=== PATIENT | male | born 1965 | race African-American/Black ===

== ENCOUNTER 2022-08-22 08:38 | Emergency (ER) | payer OTHER ==
[2022-08-22 08:52] VITALS: TEMP 97.9
--- NOTE | 2022-08-22 09:19 | ED ---
Recheck HPI - General Chief Complaint: Recheck/Abnormal Lab/Rx Stated Complaint: leg pain Time Seen by Provider: 08/22/22 08:54 Source: patient, RN notes reviewed Mode of arrival: ambulatory Limitations: no limitations - History of Present Illness Initial Comments: 57-year-old male history of chronic bypass in the past history of hypertension who states she is on Coumadin which she has been taking but not the usual dosing regimen also states he's not been out of his blood pressure medications for a couple months who presents with complaints of some left leg pain. He states he has hardware left orbit from previous injury. The concern however is his blood pressure. No chest pain or shortness of breath he states he just moved to the area. He does not have a new doctor yet. He was on amlodipine he cannot remember the exact dose. The patient states he was having some sharp pain in the left side going on for about 2 weeks worse at work last night. No other current complaints or modifying factors - Related Data Home Medications Medication Instructions Recorded Confirmed Aspirin EC [Ecotrin Low Dose] 81 mg PO DAILY 08/22/22 08/22/22 Clopidogrel [Plavix] 75 mg PO DAILY 08/22/22 08/22/22 Previous Rx's Medication Instructions Recorded amLODIPine 10 mg PO DAILY #30 tab 08/22/22 Allergies Allergy/AdvReac Type Severity Reaction Status Date / Time No Known Allergies Allergy Verified 08/22/22 10:31 Review of Systems ROS Statement: Those systems with pertinent positive or pertinent negative responses have been documented in the HPI. ROS Other: All systems not noted in ROS Statement are negative. Past Medical History Past Medical History: Coronary Artery Disease (CAD), Hypertension, Myocardial Infarction ([place]) History of Any Multi-Drug Resistant Organisms: None Reported Past Surgical History: Coronary Bypass/CABG, Heart Catheterization With Stent Additional Past Surgical History / Comment(s): Quadruple Bypass 2019 Past Psychological History: No Psychological Hx Reported Smoking Status: Former smoker Past Alcohol Use History: None Reported Past Drug Use History: None Reported General Exam - General Exam Comments Initial Comments: This a well-developed well-nourished awake alert oriented 4 male Limitations: no limitations General appearance: alert, in no apparent distress Head exam: Present: atraumatic, normocephalic, normal inspection Eye exam: Present: normal appearance, PERRL, EOMI. Absent: scleral icterus, conjunctival injection, periorbital swelling ENT exam: Present: normal exam, mucous membranes moist Neck exam: Present: normal inspection, full ROM, other. Absent: tenderness, meningismus, lymphadenopathy Respiratory exam: Present: normal lung sounds bilaterally, prolonged expiratory (Well-healed mid sternotomy scar), other (No stridor JVD or bruits). Absent: respiratory distress, wheezes, rales, rhonchi, stridor Cardiovascular Exam: Present: regular rate, normal rhythm, normal heart sounds. Absent: systolic murmur, diastolic murmur, rubs, gallop, clicks GI/Abdominal exam: Present: soft, normal bowel sounds. Absent: distended, tenderness, guarding, rebound, rigid Extremities exam: Present: normal inspection, full ROM, normal capillary refill. Absent: tenderness, pedal edema, joint swelling, calf tenderness Back exam: Present: normal inspection Neurological exam: Present: alert, oriented X3, CN II-XII intact Psychiatric exam: Present: normal affect, normal mood Skin exam: Present: warm, dry, intact, normal color. Absent: rash Course Vital Signs 08/22/22 08/22/22 08:47 09:23 Temperature 97.9 F Pulse Rate 86 68 Respiratory 17 18 Rate Blood Pressure 207/95 169/95 O2 Sat by Pulse 99 98 Oximetry Medical Decision Making - Medical Decision Making I did discuss findings with the patient he is feeling well at this time he'll get a dose of amlodipine and be given a prescription for the same he believes he is on 10 mg. He'll be discharged he is to continue with follow-up with attending physician return when necessary - Lab Data Result diagrams: 08/22/22 09:16 08/22/22 09:16 Lab Results 08/22/22 08/22/22 08/22/22 Range/Units 09:16 09:16 09:16 WBC 4.5 (3.8-10.6) k/uL RBC 5.29 (4.30-5.90) m/uL Hgb 14.9 (13.0-17.5) gm/dL Hct 44.8 (39.0-53.0) % MCV 84.6 (80.0-100.0) fL MCH 28.2 (25.0-35.0) pg MCHC 33.4 (31.0-37.0) g/dL RDW 13.8 (11.5-15.5) % Plt Count 246 (150-450) k/uL MPV 9.4 Neutrophils % 63 % Lymphocytes % 23 % Monocytes % 6 % Eosinophils % 5 % Basophils % 1 % Neutrophils # 2.8 (1.3-7.7) k/uL Lymphocytes # 1.1 (1.0-4.8) k/uL Monocytes # 0.3 (0-1.0) k/uL Eosinophils # 0.2 (0-0.7) k/uL Basophils # 0.0 (0-0.2) k/uL PT 10.4 (9.0-12.0) sec INR 0.9 (<1.2) APTT 24.1 (22.0-30.0) sec Sodium 141 (137-145) mmol/L Potassium 4.9 (3.5-5.1) mmol/L Chloride 108 H (98-107) mmol/L Carbon Dioxide 23 (22-30) mmol/L Anion Gap 10 mmol/L BUN 22 H (9-20) mg/dL Creatinine 1.22 (0.66-1.25) mg/dL Est GFR (CKD-EPI)AfAm 77 (>60 ml/min/1.73 sqM) Est GFR (CKD-EPI)NonAf 66 (>60 ml/min/1.73 sqM) Glucose 102 H (74-99) mg/dL Calcium 8.9 (8.4-10.2) mg/dL Magnesium 2.0 (1.6-2.3) mg/dL Total Bilirubin 0.6 (0.2-1.3) mg/dL AST 40 (17-59) U/L ALT 21 (4-49) U/L Alkaline Phosphatase 63 (38-126) U/L Creatine Kinase 665 H (55-170) U/L Troponin I (0.000-0.034) ng/mL C-Reactive Protein 0.8 (<1.0) mg/dL Total Protein 7.5 (6.3-8.2) g/dL Albumin 4.7 (3.5-5.0) g/dL Lipase 130 (23-300) U/L 08/22/22 Range/Units 09:16 WBC (3.8-10.6) k/uL RBC (4.30-5.90) m/uL Hgb (13.0-17.5) gm/dL Hct (39.0-53.0) % MCV (80.0-100.0) fL MCH (25.0-35.0) pg MCHC (31.0-37.0) g/dL RDW (11.5-15.5) % Plt Count (150-450) k/uL MPV Neutrophils % % Lymphocytes % % Monocytes % % Eosinophils % % Basophils % % Neutrophils # (1.3-7.7) k/uL Lymphocytes # (1.0-4.8) k/uL Monocytes # (0-1.0) k/uL Eosinophils # (0-0.7) k/uL Basophils # (0-0.2) k/uL PT (9.0-12.0) sec INR (<1.2) APTT (22.0-30.0) sec Sodium (137-145) mmol/L Potassium (3.5-5.1) mmol/L Chloride (98-107) mmol/L Carbon Dioxide (22-30) mmol/L Anion Gap mmol/L BUN (9-20) mg/dL Creatinine (0.66-1.25) mg/dL Est GFR (CKD-EPI)AfAm (>60 ml/min/1.73 sqM) Est GFR (CKD-EPI)NonAf (>60 ml/min/1.73 sqM) Glucose (74-99) mg/dL Calcium (8.4-10.2) mg/dL Magnesium (1.6-2.3) mg/dL Total Bilirubin (0.2-1.3) mg/dL AST (17-59) U/L ALT (4-49) U/L Alkaline Phosphatase (38-126) U/L Creatine Kinase (55-170) U/L Troponin I <0.012 (0.000-0.034) ng/mL C-Reactive Protein (<1.0) mg/dL Total Protein (6.3-8.2) g/dL Albumin (3.5-5.0) g/dL Lipase (23-300) U/L - EKG Data -: EKG Interpreted by Or EKG shows normal: sinus rhythm EKG Comments: Sinus rhythm a 72 AL interval 161 QRS duration 90 QT since QTC 407/or 32 possible left atrial enlargement borderline right axis deviation nonspecific T- wave configuration - Radiology Data Radiology results: report reviewed ((Reviewed as well as report no acute processes), image reviewed Disposition Clinical Impression: Hypertension, Dehydration, Rhabdomyolysis Disposition: HOME SELF-CARE Condition: Good Instructions (If sedation given, give patient instructions): Chronic Hypertension (ED), Dehydration (ED), Rhabdomyolysis (ED) Additional Instructions: Increase oral fluids Prescriptions: amLODIPine 10 mg PO DAILY #30 tab Is patient prescribed a controlled substance at d/c from ED?: No Referrals: None,Stated [Primary Care Provider] - 1-2 days Decision Date: 08/22/22 Decision Time: 11:46
[2022-08-22 09:23] VITALS: BP 169/95; PULSE 68; RESP 18
[2022-08-22 09:24] LABS: Basophils % (A) 1 %; Eosinophils # (A) 0.2 k/uL (0-0.7); Eosinophils % (A) 5 %; HCT 44.8 % (39.0-53.0); HGB 14.9 gm/dL (13.0-17.5); Lymphocytes # (A) 1.1 k/uL (1.0-4.8); Lymphocytes % (A) 23 %; MCH 28.2 pg (25.0-35.0); MCHC 33.4 g/dL (31.0-37.0); MCV 84.6 fL (80.0-100.0); Mean Platelet Volume 9.4; Monocytes # (A) 0.3 k/uL (0-1.0); Monocytes % (A) 6 %; Neutrophils # (A) 2.8 k/uL (1.3-7.7); Neutrophils % (A) 63 %; Platelet Count 246 k/uL (150-450); RBC 5.29 m/uL (4.30-5.90); RDW 13.8 % (11.5-15.5); WBC 4.5 k/uL (3.8-10.6)
[2022-08-22 09:37] LABS: INR 0.9 (<1.2); Partial Thromboplastin Time 24.1 sec (22.0-30.0); Prothrombin Time 10.4 sec (9.0-12.0)
--- NOTE | 2022-08-22 09:41 | XR ---
EXAMINATION TYPE: XR chest 2V DATE OF EXAM: 08/22/2022 9:36 AM COMPARISON: None TECHNIQUE: XR chest 2V Frontal and lateral views of the chest. CLINICAL INDICATION:Male, 57 years old with history of Hypertension; FINDINGS: Overlying EKG leads limits evaluation. Lungs/Pleura: There is no evidence of pleural effusion, focal consolidation, or pneumothorax. Pulmonary vascularity: Unremarkable. Heart/mediastinum: Cardiomediastinal silhouette is unremarkable. Musculoskeletal: No acute osseous pathology. Midline sternotomy wires are noted and stable. IMPRESSION: No acute cardiopulmonary disease/process.
[2022-08-22 09:43] LABS: Albumin 4.7 g/dL (3.5-5.0); Calcium 8.9 mg/dL (8.4-10.2); Total Bilirubin 0.6 mg/dL (0.2-1.3); Total Protein 7.5 g/dL (6.3-8.2)
[2022-08-22 10:04] LABS: Potassium 4.9 mmol/L (3.5-5.1)
[2022-08-22] MEDS ORDERED: SODIUM CHLORIDE 0.9% 1,000 ML IV STA (10:10)
[2022-08-22 10:15] LABS: C Reactive Protein 0.8 mg/dL (<1.0)
[2022-08-22] MEDS ORDERED: amLODIPine 10 MG TAB PO STA (11:38)
== END 2022-08-22 12:05 | disposition home or self-care (01) ==
LOC: EC 08:38
DX: I10 Essential (primary) hypertension (principal); E86.0 Dehydration; M62.82 Rhabdomyolysis; I25.10 Atherosclerotic heart disease of native coronary artery without angina pectoris; I25.2 Old myocardial infarction; Z87.891 Personal history of nicotine dependence; Z79.82 Long term (current) use of aspirin; Z79.02 Long term (current) use of antithrombotics/antiplatelets; Z79.83 Long term (current) use of bisphosphonates
CPT/HCPCS: 36415; 71046; 80053; 82550; 83690; 83735; 84484; 85025; 85610; 85730; 86140; 93005; 96360; 99284

== ENCOUNTER 2022-11-16 11:58 | Observation (INO) | payer BC, OTHER ==
--- NOTE | 2022-11-16 12:44 | ED ---
General Adult HPI - General Chief complaint: Dizziness Stated complaint: dizziness Time Seen by Provider: 11/16/22 12:12 Source: patient Mode of arrival: ambulatory Limitations: no limitations - History of Present Illness Initial comments: Dictation was produced using [employer] dictation software. please excuse any grammatical, word or spelling errors. Chief Complaint: 57-year-old male presents emergency department for dizziness and diaphoresis History of Present Illness: 57-year-old male he has past medical history of coronary artery bypass grafting performed in 2019 done in [place]. Patient is supposed be on multiple medications but is noncompliant. Multiple town recently and has not established himself with regular doctor or cardiology here. He was at work where he works at [employer] area. He works in [employer] Couple hours prior to arrival he had episode of dizziness and diaphoresis. Patient also complains of some mild nasal congestion. Denies any fever constitutional symptoms. Patient has a baseline cough. Denies any shoulder pain or epigastric pain. Since being in emergency department he feels improved. Does complain of some mild exertional shortness of breath over the last 2-3 days. The ROS documented in this emergency department record has been reviewed and confirmed by me. Those systems with pertinent positive or negative responses have been documented in the HPI. All other systems are other negative and/or noncontributory. PHYSICAL EXAM: General Impression: Alert and oriented x3, not in acute distress HEENT: Normocephalic atraumatic, extra-ocular movements intact, pupils equal and reactive to light bilaterally, mucous membranes moist. Cardiovascular: Heart regular rate and rhythm Chest: Able to complete full sentences, no retractions, no tachypnea Abdomen: abdomen soft, non-tender, non-distended, no organomegaly Musculoskeletal: Pulses present and equal in all extremities, no peripheral edema Motor: no focal deficits noted Neurological: CN II-XII grossly intact, no focal motor or sensory deficits noted Skin: Intact with no visualized rashes Psych: Normal affect and mood ED course: 57-year-old well-appearing male with extensive cardiac history and medication noncompliance presents to the emergency department for episode of dizziness and diaphoresis. Signs upon arrival are within acceptable limits. EKG shows no signs of ischemia or infarction. Patient reports he is supposed to be on anticoagulation medications but he does not know for what reason and what medication Nursing notes and chart review was performed EKG interpreted by me: Ventricular rate 85, sinus rhythm,. 170, QRS 80, QTc 4 week. No AR prolongation, no QTC prolongation, no ST or T-wave changes noted. Overall, this EKG is unremarkable Laboratory evaluation obtained. CBC, coag panel is unremarkable. Metabolic panel shows elevated renal markers. Renal function was compared to labs from August last year showing significant elevation. This allows unremarkable. For panel are PCR is negative. Chest x-ray is nonacute. Clinical presentation concerning for a acute kidney injury Was pt. sent in by a medical professional or institution (, [facility], ART TRACER, urgent care, hospital, or halfway...) When possible be specific @ -Sent in from work Did you speak to anyone other than the patient for history (EMS, parent, family, police, friend...)? What history was obtained from this source @ -No Did you review nursing and triage notes (agree or disagree)? Why? @ -I reviewed and agree with nursing and triage notes Were old charts reviewed (outside hosp., previous admission, EMS record, old EKG, old radiological studies, urgent care reports/EKG's, halfway records)? Report findings @ -No old charts were reviewed Differential Diagnosis (chest pain, altered mental status, abdominal pain women, abdominal pain men, vaginal bleeding, weakness, fever, dyspnea, syncope, headache, dizziness, GI bleed, back pain, seizure, CVA, palpatations, mental health)? @ -Differential Weakness: Hypoglycemia, shock, sepsis, hyponatremia, anemia, infection, UT, ETOH, adverse medicine reaction, overdose, stroke, this is not meant to be an all-inclusive list. EKG interpreted by me (3pts min.). @ -As above X-rays interpreted by me (1pt min.). @ -As above CT interpreted by me (1pt min.). @ -None done U/S interpreted by me (1pt. min.). @ -None done What testing was considered but not performed or refused? (CT, X-rays, U/S, labs)? Why? @ -None What meds were considered but not given or refused? Why? @ -None Did you discuss the management of the patient with other professionals (professionals i.e. , [facility], ART TRACER, lab, RT, psych nurse, family welfare social work professor, lead business analyst, teacher, juvenile officer, case assistant)? Give summary @ -No Was smoking cessation discussed for >3mins.? @ -No Was critical care preformed (if so, how long)? @ -No Were there social determinants of health that impacted care today? How? (Homelessness, low income, unemployed, alcoholism, drug addiction, transportation, low edu. Level, literacy, decrease access to med. care, custodial, rehab)? @ -medication noncompliance in patient with significant cardiac history Was there de-escalation of care discussed even if they declined (Discuss DNR or withdrawal of care, Hospice)? DNR status @ -No What co-morbidities impacted this encounter? (DM, HTN, Smoking, COPD, CAD, Cancer, CVA, ARF, Chemo, Hep., AIDS, mental health diagnosis, sleep apnea, morbid obesity)? @ -None Was patient admitted / discharged? Hospital course, mention meds given and route, prescriptions, significant lab abnormalities, going to OR and other pertinent info. @ -See above Undiagnosed new problem with uncertain prognosis? @ -No Drug Therapy requiring intensive monitoring for toxicity (Heparin, Nitro, Insulin, Cardizem)? @ -No Were any procedures done? @ -No Diagnosis/symptom? @ -Acute kidney injury Acute, or Chronic, or Acute on Chronic? @ -default Uncomplicated (without systemic symptoms) or Complicated (systemic symptoms)? @ -Uncomplicated Side effects of treatment? @ -No Exacerbation, Progression, or Severe Exacerbation? @ -No Poses a threat to life or bodily function? How? (Chest pain, USA, UT, pneumonia, PE, COPD, DKA, ARF, appy, cholecystitis, CVA, Diverticulitis, Homicidal, Suicidal, threat to staff... and all critical care pts) @ -No - Related Data Home Medications Medication Instructions Recorded Confirmed Aspirin EC [Ecotrin Low Dose] 81 mg PO DAILY 08/22/22 11/16/22 Previous Rx's Medication Instructions Recorded amLODIPine 10 mg PO DAILY #30 tab 08/22/22 Allergies Allergy/AdvReac Type Severity Reaction Status Date / Time No Known Allergies Allergy Verified 11/16/22 13:14 Review of Systems ROS Statement: Those systems with pertinent positive or pertinent negative responses have been documented in the HPI. ROS Other: All systems not noted in ROS Statement are negative. Past Medical History Past Medical History: Coronary Artery Disease (CAD), Hypertension, Myocardial Infarction ([place]) History of Any Multi-Drug Resistant Organisms: None Reported Past Surgical History: Coronary Bypass/CABG, Heart Catheterization With Stent Additional Past Surgical History / Comment(s): Quadruple Bypass 2019 Past Psychological History: No Psychological Hx Reported Smoking Status: Former smoker Past Alcohol Use History: None Reported Past Drug Use History: None Reported General Exam Limitations: no limitations Course Vital Signs 11/16/22 11:59 Temperature 97.7 F Pulse Rate 91 Respiratory 20 Rate Blood Pressure 174/103 O2 Sat by Pulse 97 Oximetry Medical Decision Making - Lab Data Result diagrams: 11/16/22 12:34 11/16/22 12:34 Lab Results 11/16/22 11/16/22 11/16/22 Range/Units 12:34 12:34 12:34 WBC 4.7 (3.8-10.6) k/uL RBC 5.54 (4.30-5.90) m/uL Hgb 15.5 (13.0-17.5) gm/dL Hct 47.3 (39.0-53.0) % MCV 85.4 (80.0-100.0) fL MCH 28.0 (25.0-35.0) pg MCHC 32.8 (31.0-37.0) g/dL RDW 14.8 (11.5-15.5) % Plt Count 202 (150-450) k/uL MPV 9.2 Neutrophils % 64 % Lymphocytes % 23 % Monocytes % 6 % Eosinophils % 3 % Basophils % 1 % Neutrophils # 3.0 (1.3-7.7) k/uL Lymphocytes # 1.1 (1.0-4.8) k/uL Monocytes # 0.3 (0-1.0) k/uL Eosinophils # 0.1 (0-0.7) k/uL Basophils # 0.0 (0-0.2) k/uL PT 10.4 (9.0-12.0) sec INR 1.0 (<1.2) APTT 23.6 (22.0-30.0) sec Sodium 141 (137-145) mmol/L Potassium 4.3 (3.5-5.1) mmol/L Chloride 108 H (98-107) mmol/L Carbon Dioxide 24 (22-30) mmol/L Anion Gap 9 mmol/L BUN 29 H (9-20) mg/dL Creatinine 2.30 H (0.66-1.25) mg/dL Est GFR (CKD-EPI)AfAm 35 (>60 ml/min/1.73 sqM) Est GFR (CKD-EPI)NonAf 31 (>60 ml/min/1.73 sqM) Glucose 95 (74-99) mg/dL Calcium 9.3 (8.4-10.2) mg/dL Magnesium 1.8 (1.6-2.3) mg/dL Total Bilirubin 0.4 (0.2-1.3) mg/dL AST 33 (17-59) U/L ALT 28 (4-49) U/L Alkaline Phosphatase 57 (38-126) U/L Troponin I (0.000-0.034) ng/mL NT-Pro-B Natriuret Pep pg/mL Total Protein 7.4 (6.3-8.2) g/dL Albumin 4.6 (3.5-5.0) g/dL Influenza Type A (PCR) (Not Detectd) Influenza Type B (PCR) (Not Detectd) RSV (PCR) (Not Detectd) SARS-CoV-2 (PCR) (Not Detectd) 11/16/22 11/16/22 11/16/22 Range/Units 12:34 12:34 12:39 WBC (3.8-10.6) k/uL RBC (4.30-5.90) m/uL Hgb (13.0-17.5) gm/dL Hct (39.0-53.0) % MCV (80.0-100.0) fL MCH (25.0-35.0) pg MCHC (31.0-37.0) g/dL RDW (11.5-15.5) % Plt Count (150-450) k/uL MPV Neutrophils % % Lymphocytes % % Monocytes % % Eosinophils % % Basophils % % Neutrophils # (1.3-7.7) k/uL Lymphocytes # (1.0-4.8) k/uL Monocytes # (0-1.0) k/uL Eosinophils # (0-0.7) k/uL Basophils # (0-0.2) k/uL PT (9.0-12.0) sec INR (<1.2) APTT (22.0-30.0) sec Sodium (137-145) mmol/L Potassium (3.5-5.1) mmol/L Chloride (98-107) mmol/L Carbon Dioxide (22-30) mmol/L Anion Gap mmol/L BUN (9-20) mg/dL Creatinine (0.66-1.25) mg/dL Est GFR (CKD-EPI)AfAm (>60 ml/min/1.73 sqM) Est GFR (CKD-EPI)NonAf (>60 ml/min/1.73 sqM) Glucose (74-99) mg/dL Calcium (8.4-10.2) mg/dL Magnesium (1.6-2.3) mg/dL Total Bilirubin (0.2-1.3) mg/dL AST (17-59) U/L ALT (4-49) U/L Alkaline Phosphatase (38-126) U/L Troponin I <0.012 (0.000-0.034) ng/mL NT-Pro-B Natriuret Pep 83 pg/mL Total Protein (6.3-8.2) g/dL Albumin (3.5-5.0) g/dL Influenza Type A (PCR) Not Detected (Not Detectd) Influenza Type B (PCR) Not Detected (Not Detectd) RSV (PCR) Not Detected (Not Detectd) SARS-CoV-2 (PCR) Not Detected (Not Detectd) Disposition Clinical Impression: MAGDA (acute kidney injury) Disposition: ADMITTED IP TO THIS HOSP Condition: Fair Referrals: None,Stated [Primary Care Provider] - 1-2 days Decision Time: 14:51
--- NOTE | 2022-11-16 12:48 | XR ---
EXAMINATION TYPE: XR chest 2V DATE OF EXAM: 11/16/2022 12:44 PM COMPARISON: Chest radiographs from 08/22/2022 TECHNIQUE: XR chest 2V Frontal and lateral views of the chest. CLINICAL INDICATION:Male, 57 years old with history of dyspnea; FINDINGS: Lungs/Pleura: There is no evidence of pleural effusion, focal consolidation, or pneumothorax. Pulmonary vascularity: Unremarkable. Heart/mediastinum: Cardiomediastinal silhouette is unremarkable. Musculoskeletal: No acute osseous pathology. Midline sternotomy wires are noted and stable. IMPRESSION: No acute cardiopulmonary disease/process.
[2022-11-16 12:50] LABS: Basophils % (A) 1 %; Eosinophils # (A) 0.1 k/uL (0-0.7); Eosinophils % (A) 3 %; HCT 47.3 % (39.0-53.0); HGB 15.5 gm/dL (13.0-17.5); Lymphocytes # (A) 1.1 k/uL (1.0-4.8); Lymphocytes % (A) 23 %; MCHC 32.8 g/dL (31.0-37.0); MCV 85.4 fL (80.0-100.0); Mean Platelet Volume 9.2; Monocytes # (A) 0.3 k/uL (0-1.0); Monocytes % (A) 6 %; Neutrophils % (A) 64 %; Platelet Count 202 k/uL (150-450); RBC 5.54 m/uL (4.30-5.90); RDW 14.8 % (11.5-15.5); WBC 4.7 k/uL (3.8-10.6)
[2022-11-16 12:58] LABS: Partial Thromboplastin Time 23.6 sec (22.0-30.0); Prothrombin Time 10.4 sec (9.0-12.0)
[2022-11-16 13:19] LABS: Albumin 4.6 g/dL (3.5-5.0); Calcium 9.3 mg/dL (8.4-10.2); Magnesium 1.8 mg/dL (1.6-2.3); Potassium 4.3 mmol/L (3.5-5.1); Total Bilirubin 0.4 mg/dL (0.2-1.3); Total Protein 7.4 g/dL (6.3-8.2)
[2022-11-16] MEDS ORDERED: SODIUM CHLORIDE 0.9% 1,000 ML IV STA (14:29)
[2022-11-16] MEDS ORDERED: NALOXONE 0.4 MG/ML 1 ML VIAL IV PRN (14:51)
[2022-11-16] MEDS: SODIUM CHLORIDE 0.9% 1,000 ML IV SCH (15:21)
[2022-11-16] MEDS ORDERED: ACETAMINOPHEN TAB 325 MG TAB PO PRN (19:02)
[2022-11-16] MEDS ORDERED: ONDANSETRON 4 MG/2 ML VIAL IVP PRN (19:02)
[2022-11-16] MEDS: amLODIPine 10 MG TAB PO SCH (20:20)
[2022-11-16] MEDS: HEPARIN SODIUM,PORCINE/PF 5,000 UNIT/0.5 ML SYRINGE SQ SCH (20:20)
[2022-11-16] MEDS: FAMOTIDINE 20 MG/2 ML VIAL IV SCH (20:21)
[2022-11-16 21:58] LABS: Appearance,Urine Clear (Clear); Bilirubin,Urine Negative (Negative); Blood,Urine Negative (Negative); Color,Urine Colorless; Glucose,Urine (UA) Negative (Negative); Ketones,Urine Negative (Negative); Leukocyte Esterase,Urine Negative (Negative); Nitrite,Urine Negative (Negative); PH, Urine 5.5 (5.0-8.0); Protein,Urine Negative (Negative); Specific Gravity,Urine 1.009 (1.001-1.035); Urobilinogen,Urine <2.0 mg/dL (<2.0)
[2022-11-16] MEDS: hydrALAZINE HCL 25 MG TAB PO PRN (22:39)
[2022-11-17] MEDS: SODIUM CHLORIDE 0.9% 1,000 ML IV SCH (05:24)
[2022-11-17] MEDS: amLODIPine 10 MG TAB PO SCH (08:34)
[2022-11-17] MEDS: ASPIRIN 81 MG PO SCH (08:35)
[2022-11-17] MEDS: HEPARIN SODIUM,PORCINE/PF 5,000 UNIT/0.5 ML SYRINGE SQ SCH ×2 (08:35→20:15)
[2022-11-17] MEDS: FAMOTIDINE 20 MG/2 ML VIAL IV SCH (08:36)
[2022-11-17 10:30] VITALS: RESP 16
[2022-11-17 11:19] LABS: Basophils # (A) 0.03 X 10*3/uL (0.00-0.10); Basophils % (A) 0.7 %; Eosinophils # (A) 0.18 X 10*3/uL (0.04-0.35); Eosinophils % (A) 3.9 %; HCT 52.2 % (39.6-50.0); HGB 16.9 g/dL (13.0-17.0); Immature Grans, Automated 0.2 %; Lymphocytes # (A) 1.29 X 10*3/uL (0.90-5.00); MCH 28.1 pg (27.0-32.0); MCHC 32.4 g/dL (32.0-37.0); MCV 86.7 fL (80.0-97.0); Monocytes # (A) 0.36 X 10*3/uL (0.20-1.00); Monocytes % (A) 7.8 %; NRBC Per 100 WBC 0 /100 WBCS (0.0-0.0); Neutrophils # (A) 2.73 X 10*3/uL (1.80-7.70); Neutrophils % (A) 59.4 %; Platelet Count 234 X 10*3/uL (140-440); RBC 6.02 X 10*6/uL (4.40-5.60)
[2022-11-17 11:40] LABS: African American GFR (CKD) 64.6 (60.0-200.0); Anion Gap 10.9 mmol/L (10.00-18.00); BUN/Creat Ratio 14.93 Ratio (12.00-20.00); Blood Urea Nitrogen 20.9 mg/dL (9.0-27.0); Carbon Dioxide 25.1 mmol/L (20.0-27.5); Non-African American GFR(CKD) 55.8 (60.0-200.0)
--- NOTE | 2022-11-17 13:41 | P.NPCON ---
History of Present Illness - Reason for Consult Consult date: 11/17/22 end stage renal disease - Chief Complaint Acute kidney injury - History of Present Illness This is a 57-year-old male seen in consultation because of acute kidney injury. He came in with a creatinine of 2.3 and with IV fluids his creatinine down to 1.4. Past history significant for coronary artery disease, history of coronary artery bypass graft in 2019. He ran out of his amlodipine a few weeks ago. No nausea vomiting diarrhea did not take any nonsteroidals or any antibiotics no [id number] medications at all. The only medication he was taking was aspirin. Denies any history of prostatism incontinence. No history of polyuria. No history of taking any Chief Complaint: 57-year-old male presents emergency department for dizziness and diaphoresis History of Present Illness: 57-year-old male he has past medical history of coronary artery bypass grafting performed in 2019 done in [place]. Patient is supposed be on multiple medications but is noncompliant. Multiple town recently and has not established himself with regular doctor or cardiology here. He was at work where he works at [employer]. He works in [employer]. Couple hours prior to arrival he had episode of dizziness and diaphoresis. Patient also complains of some mild nasal congestion. Denies any fever constitutional symptoms. Patient has a baseline cough. Denies any shoulder p ain or epigastric pain. Since being in emergency department he feels improved. Does complain of some mild exertional shortness of breath over the last 2-3 days. Past Medical History Past Medical History: Coronary Artery Disease (CAD), Hypertension, Myocardial Infarction ([place]) Last Myocardial Infarction Date:: 2018 History of Any Multi-Drug Resistant Organisms: None Reported Past Surgical History: Coronary Bypass/CABG, Heart Catheterization With Stent Additional Past Surgical History / Comment(s): Quadruple Bypass 2019 Date of Last Stent Placement:: 2019 Past Psychological History: No Psychological Hx Reported Smoking Status: Former smoker, Vaper Past Alcohol Use History: None Reported Past Drug Use History: None Reported Medications and Allergies Home Medications Medication Instructions Recorded Confirmed Type Aspirin EC [Ecotrin Low Dose] 81 mg PO DAILY 08/22/22 11/16/22 History amLODIPine 10 mg PO DAILY #30 tab 08/22/22 11/16/22 Rx Allergies Allergy/AdvReac Type Severity Reaction Status Date / Time No Known Allergies Allergy Verified 11/16/22 13:14 Physical Exam Vitals: Vital Signs Temp Pulse Pulse Resp BP BP BP 11/17/22 08:00 68 16 11/17/22 07:55 97.8 F 68 16 147/84 11/17/22 02:01 97.8 F 76 18 146/92 11/17/22 02:00 72 17 11/16/22 22:39 172/102 11/16/22 20:12 97.9 F 72 17 179/111 11/16/22 20:00 63 16 11/16/22 17:20 98.4 F 63 16 164/90 11/16/22 15:19 73 16 139/86 Pulse Ox 11/17/22 08:00 11/17/22 07:55 98 11/17/22 02:01 94 L 11/17/22 02:00 11/16/22 22:39 11/16/22 20:12 97 11/16/22 20:00 11/16/22 17:20 94 L 11/16/22 15:19 97 Intake and Output 11/16/22 11/17/22 11/17/22 22:59 06:59 14:59 Intake Total 1020 1080 118 Output Total 176 725 Balance 844 1080 -607 Intake: Oral 1020 1080 118 Output: Urine 725 Post Void Residual 176 Other: Voiding Method Toilet Toilet Toilet Weight 83.915 kg On examination awake alert oriented comfortable No JVP neck is supple no facial asymmetry lungs are clear to auscultation good air entry bilaterally Heart sounds unremarkable Abdomen soft nontender Extremity exam no edema Neurologically awake alert oriented. Results - Lab Results Most recent lab results Calcium 10.0 mg/dL (8.7-10.3) 11/17/22 07:41 Magnesium 1.8 mg/dL (1.6-2.3) 11/16/22 12:34 11/17/22 07:41 11/17/22 07:41 Assessment and Plan Assessment: Impression 1. Acute kidney injury caused not clear. It was associated with a syncopal episode. Creatinine 2.3 on admission is down to 1.4 improved immediately with IV fluid therefore some prerenal component although I cannot figure out why he had volume depletion. Urinalysis is benign 2. History of coronary artery bypass graft in 2019 3. 2 episodes of near syncope unprovoked. Needs cardiology workup. Recommendation 1. Discontinue IV fluids and watch. Repeat labs tomorrow
--- NOTE | 2022-11-17 15:57 | P.HPIM ---
History of Present Illness H&P Date: 11/17/22 History of present illness; patient is a 57-year-old gentleman with past medical significant for coronary disease status post CABG, noncompliance who recently moved from [place] to [place] presented to the ER because of dizziness and diaphoresis. 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 Patient was working when he started experiencing dizziness, denied any chest pain at that time. Patient was having some mild nasal congestion. Patient has been noticing increasing lethargic and get short of breath on exertion easily. In the ER, patient was worked up initial sodium was 143, potassium 4.3, BUN 29, creatinine 2.3, respiratory panel Negative for influenza AB and COVID-19. Patient was a dmitted to hospitalist service for further evaluation and treatment REVIEW OF SYSTEMS: CONSTITUTIONAL: No fever. HEENT: No recent visual problems or hearing problems. Denied any sore throat. CARDIOVASCULAR: No chest pain, orthopnea, PND, no palpitations, no syncope. PULMONARY: no cough, no hemoptysis. GASTROINTESTINAL: No diarrhea, no nausea, no vomiting, no abdominal pain. NEUROLOGICAL: No headaches, no weakness, no numbness. HEMATOLOGICAL: Denies any bleeding or petechiae. GENITOURINARY: Denies any burning micturition, frequency, or urgency. MUSCULOSKELETAL/RHEUMATOLOGICAL: Denies any joint pain, swelling, or any muscle pain. ENDOCRINE: Denies any polyuria or polydipsia. The rest of the 14-point review of systems is negative. PHYSICAL EXAMINATION: GENERAL: The patient is alert and oriented x3, not in any acute distress. Well developed, well nourished. HEENT: Pupils are round and equally reacting to light. EOMI. No scleral icterus. No conjunctival pallor. Normocephalic, atraumatic. No pharyngeal erythema. No thyromegaly. CARDIOVASCULAR: S1 and S2 present. No murmurs, rubs, or gallops. PULMONARY: Chest is clear to auscultation, no wheezing or crackles. ABDOMEN: Soft, nontender, nondistended, normoactive bowel sounds. No palpable organomegaly. MUSCULOSKELETAL: No joint swelling or deformity. EXTREMITIES: No cyanosis, clubbing, or pedal edema. NEUROLOGICAL: Gross neurological examination did not reveal any focal deficits. SKIN: No rashes. Assessment and plan Acute kidney injury History of coronary artery disease Near syncope Hypertension Plan; Monitor vital signs Monitor CMP Avoid nephrotoxic agents Continue IV fluids Ordered 2-D echo Monitor troponins. Consult cardiology Follow-up in nephrology recommendations DVT prophylaxis: Past Medical History Past Medical History: Coronary Artery Disease (CAD), Hypertension, Myocardial Infarction ([place]) Last Myocardial Infarction Date:: 2018 History of Any Multi-Drug Resistant Organisms: None Reported Past Surgical History: Coronary Bypass/CABG, Heart Catheterization With Stent Additional Past Surgical History / Comment(s): Quadruple Bypass 2018 Date of Last Stent Placement:: 2018 Past Psychological History: No Psychological Hx Reported Smoking Status: Former smoker, Vaper Past Alcohol Use History: None Reported Past Drug Use History: None Reported Medications and Allergies Home Medications Medication Instructions Recorded Confirmed Type Aspirin EC [Ecotrin Low Dose] 81 mg PO DAILY 08/22/22 11/16/22 History amLODIPine 10 mg PO DAILY #30 tab 08/22/22 11/16/22 Rx Allergies Allergy/AdvReac Type Severity Reaction Status Date / Time No Known Allergies Allergy Verified 11/16/22 13:14 Physical Exam Vitals: Vital Signs Temp Pulse Resp BP BP Pulse Ox 11/17/22 15:00 98.3 F 79 16 154/87 97 11/17/22 08:00 68 16 11/17/22 07:55 97.8 F 68 16 147/84 98 11/17/22 02:01 97.8 F 76 18 146/92 94 L 11/17/22 02:00 72 17 11/16/22 22:39 172/102 11/16/22 20:12 97.9 F 72 17 179/111 97 11/16/22 20:00 63 16 11/16/22 17:20 98.4 F 63 16 164/90 94 L Intake and Output 11/17/22 11/17/22 11/17/22 06:59 14:59 22:59 Intake Total 1080 118 118 Output Total 725 Balance 1080 -607 118 Intake: Oral 1080 118 118 Output: Urine 725 Other: Voiding Method Toilet Toilet # Voids 3 Results CBC & Chem 7: 11/17/22 07:41 11/17/22 07:41 Labs: Abnormal Lab Results - Last 24 Hours (Table) 11/17/22 11/17/22 Range/Units 07:41 07:41 RBC 6.02 H (4.40-5.60) X 10*6/uL Hct 52.2 H (39.6-50.0) % RDW 15.0 H (11.5-14.5) % Est GFR (CKD-EPI)NonAf 55.8 L (60.0-200.0) Thrombosis Risk Factor Assmnt - Choose All That Apply Any of the Below Risk Factors Present?: Yes Each Factor Represents 1 point: Age 41-60 years Other Risk Factors: No Thrombosis Risk Factor Assessment Total Risk Factor Score: 1 Thrombosis Risk Factor Assessment Level: Low Risk
[2022-11-17] MEDS: FAMOTIDINE 20 MG TAB PO SCH (20:15)
[2022-11-18] MEDS: hydrALAZINE HCL 25 MG TAB PO PRN (03:48)
[2022-11-18 04:27] VITALS: TEMP 98.2
[2022-11-18 08:31] VITALS: BP 139/77; PULSE 74
[2022-11-18] MEDS ORDERED: ATORVASTATIN 40 MG TAB PO SCH (09:00)
[2022-11-18] MEDS ORDERED: METOPROLOL SUCCINATE (ER) 50 MG TAB.ER.24H PO SCH (09:00)
[2022-11-18] MEDS ORDERED: FAMOTIDINE 20 MG TAB PO SCH (09:00)
[2022-11-18] MEDS: HEPARIN SODIUM,PORCINE/PF 5,000 UNIT/0.5 ML SYRINGE SQ SCH (09:08)
[2022-11-18] MEDS: FAMOTIDINE 20 MG TAB PO SCH (09:09)
[2022-11-18] MEDS: amLODIPine 10 MG TAB PO SCH (09:09)
[2022-11-18] MEDS: ASPIRIN 81 MG PO SCH (09:09)
--- NOTE | 2022-11-18 10:31 | CONS ---
CONSULTATION CHIEF COMPLAINT: Dizziness and acute renal insufficiency. 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 Comes in complaining of an episode of dizziness at work. The patient stated that he had syncopal event 2 years ago and has dizziness, so he was concerned that he may have another episode of syncope, came to the emergency room. His labs in the ER showed that he was in acute renal failure with a BUN of 29 and a creatinine of 2.3, which has improved this morning and the creatinine is down to 1.4 and BUN is 20. He has had 2 sets of troponins that are both within normal limits. His serological workup is negative. UA is normal, BNP is normal. EKG shows normal sinus rhythm, left atrial enlargement and nonspecific ST-T wave changes. His blood pressure on his initial admission was poorly controlled, it is better controlled now after resuming the amlodipine that he was on. Patient used to be on multiple medications, but had stopped taking them as he for a while did not have primary care physician. I am going to check a lipid profile on him today, start him on Lipitor, start him on aspirin, and continue the Norvasc, start Toprol-XL 50 mg daily. The patient is stable for discharge and I will pursue workup as outpatient. PAST MEDICAL HISTORY: Significant for coronary artery disease, status post CABG, hypertension. MEDICATIONS: Medications at home include, 1. Aspirin. 2. Amlodipine. ALLERGIES: No known drug allergies. FAMILY HISTORY: Negative for premature coronary artery disease. SOCIAL HISTORY: Negative for current smoking issues or drug abuse. REVIEW OF SYSTEMS: A review of systems has been performed, pertinence are as documented. PHYSICAL EXAMINATION: VITAL SIGNS: The patient is afebrile, heart rate is 74 beats per minute, blood pressure is 139/77, respiratory rate is 16, and O2 saturation is 100 on room air. NECK: There is no jugular venous distention. Carotid upstroke is normal. There is no bruit. CHEST: Reveals good air entry bilaterally. HEART: Reveals first and second heart sounds. No gallop, no murmur, no rub. ABDOMEN: Soft, nontender. EXTREMITIES: Did not reveal any edema. Peripheral pulses are felt. LABORATORY DATA: Labs show that the hemoglobin is 16.9, platelet count is 234, potassium is 5, creatinine is 1.4, that has come down from 2.3. Troponins are negative. ASSESSMENT: 1. Dizziness, rule out cardiac causes. 2. Coronary artery disease, status post coronary artery bypass grafting. 3. Acute renal insufficiency. 4. Hypertension. PLAN: The patient is feeling better. Renal functions have improved. Troponins are negative. Did not have any documented cardiac arrhythmia. The patient is stable for discharge and will continue his workup as outpatient. MMODL / IJN: [id number] /
--- NOTE | 2022-11-18 11:49 | P.DS ---
Providers Date of admission: 11/16/22 14:51 Expected date of discharge: 11/18/22 Attending physician: Reza Perez MD Consults: 11/16/22 14:35 Consult Physician Routine Consulting Provider: Talisha Knutson Consult Reason/Comments: felicitas Do you want consulting provider notified?: Yes 11/17/22 15:53 Consult Physician Routine Consulting Provider: Loi Patton Consult Reason/Comments: Syncope Do you want consulting provider notified?: Yes Primary care physician: Stated None Hospital Course: Discharge diagnoses; Acute kidney injury History of coronary artery disease Near syncope Hypertension Plan; Renal function normalized. Outpatient follow-up with cardiology and nephrology Hospital course; patient is a 57-year-old gentleman with past medical significant for coronary disease status post CABG, noncompliance who recently moved from [place] to [place] presented to the ER because of dizziness and diaphoresis. 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 Patient was working when he started experiencing dizziness, denied any chest pain at that time. Patient was having some mild nasal congestion. Patient has been noticing increasing lethargic and get short of breath on exertion easily. In the ER, patient was worked up initial sodium was 143, potassium 4.3, BUN 29, creatinine 2.3, respiratory panel Negative for influenza AB and COVID-19. Patient was admitted to hospitalist service for further evaluation and treatment. Patient was started on IV hydration, nephrology evaluated the patient agreed to continuation of IV fluids. Cardiology also consulted, they recommended since troponins were negative, they recommended keeping patient on cardiac medication, it may no ischemic workup, recommend outpatient follow-up. Patient has been cleared for discharge. PHYSICAL EXAMINATION: GENERAL: The patient is alert and oriented x3, not in any acute distress. Well developed, well nourished. HEENT: Pupils are round and equally reacting to light. EOMI. No scleral icterus. No conjunctival pallor. Normocephalic, atraumatic. No pharyngeal erythema. No thyromegaly. CARDIOVASCULAR: S1 and S2 present. No murmurs, rubs, or gallops. PULMONARY: Chest is clear to auscultation, no wheezing or crackles. ABDOMEN: Soft, nontender, nondistended, normoactive bowel sounds. No palpable organomegaly. MUSCULOSKELETAL: No joint swelling or deformity. EXTREMITIES: No cyanosis, clubbing, or pedal edema. NEUROLOGICAL: Gross neurological examination did not reveal any focal deficits. SKIN: No rashes. Patient Condition at Discharge: Fair Plan - Discharge Summary Discharge Rx Participant: No New Discharge Prescriptions: New Atorvastatin [Lipitor] 40 mg PO DAILY #30 tab Nitroglycerin 0.4 mg SL Q5M PRN #30 tab PRN Reason: Chest Pain Metoprolol Succinate (ER) [Toprol XL] 50 mg PO DAILY #30 tab Continue Aspirin EC [Ecotrin Low Dose] 81 mg PO DAILY amLODIPine 10 mg PO DAILY #30 tab Discharge Medication List Aspirin EC [Ecotrin Low Dose] 81 mg PO DAILY 08/22/22 [History] amLODIPine 10 mg PO DAILY #30 tab 08/22/22 [Rx] Atorvastatin [Lipitor] 40 mg PO DAILY #30 tab 11/18/22 [Rx] Metoprolol Succinate (ER) [Toprol XL] 50 mg PO DAILY #30 tab 11/18/22 [Rx] Nitroglycerin 0.4 mg SL Q5M PRN #30 tab 11/18/22 [Rx] Follow up Appointment(s)/Referral(s): None,Stated [Primary Care Provider] - 1-2 days Loi Patton MD [STAFF PHYSICIAN] - 1 Week Talisha Knutson MD [STAFF PHYSICIAN] - 1 Week Discharge Disposition: HOME SELF-CARE
[2022-11-18 17:42] LABS: Chol/HDL Ratio 8.42 Ratio; LDL Cholesterol,Calculated 238.8 mg/dL (0.0-131.0)
== END 2022-11-18 12:48 | disposition home or self-care (01) ==
LOC: EC 11:58 → 6NMEDSUR 14:51 → INTOOBSV 14:51 → 6NMEDSUR 15:44
PROVIDERS: ADMIT Internal Medicine; ATTEND Internal Medicine
DX: N17.9 Acute kidney failure, unspecified (principal); I10 Essential (primary) hypertension; E11.22 Type 2 diabetes mellitus with diabetic chronic kidney disease; R55 Syncope and collapse; I25.10 Atherosclerotic heart disease of native coronary artery without angina pectoris; Z20.822 Contact with and (suspected) exposure to COVID-19; Z66 Do not resuscitate; Z91.14 Patient's other noncompliance with medication regimen; Z95.5 Presence of coronary angioplasty implant and graft; Z87.891 Personal history of nicotine dependence; I25.2 Old myocardial infarction; I51.7 Cardiomegaly; Z95.1 Presence of aortocoronary bypass graft; Z79.82 Long term (current) use of aspirin; Z79.899 Other long term (current) drug therapy
CPT/HCPCS: 96376; 96361 ×2; 96372 ×2; 96374; 99285; 36415; 93005; 83880; 80061; 80053; 80048; 83735; 84484 ×2; 85025 ×2; 85610; 85730; 81003; 87636; 71046; G0378 ×3; J1644 ×2

== ENCOUNTER 2024-01-17 13:48 | Emergency (ER) | payer OTHER ==
--- NOTE | 2024-01-17 14:16 | ED ---
ENT HPI - General Chief complaint: ENT Stated complaint: Left side ear pain Time Seen by Provider: 01/17/24 14:00 Source: patient, RN notes reviewed Mode of arrival: ambulatory Limitations: no limitations - History of Present Illness Initial comments: 58-year-old male presents to [facility] emergency department with a chief complaint of left ear pain. Patient states that his left ear has been hurting him over the past week with an associated fullness sensation. States that his hearing is also muffled in the left side. Patient has also been experiencing a productive cough over the last week and has had a runny nose. Denies any headaches, dizziness, room spinning sensation, vision impairment, fevers. - Related Data Home Medications Medication Instructions Recorded Confirmed Aspirin EC [Ecotrin Low Dose] 81 mg PO DAILY 08/22/22 01/01/23 Previous Rx's Medication Instructions Recorded amLODIPine 10 mg PO DAILY #30 tab 08/22/22 Atorvastatin [Lipitor] 40 mg PO DAILY #30 tab 11/18/22 Metoprolol Succinate (ER) [Toprol 50 mg PO DAILY #30 tab 11/18/22 XL] Nitroglycerin 0.4 mg SL Q5M PRN #30 tab 11/18/22 Tobramycin 0.3% Ophth Soln [Tobrex 1 drop TOPICAL Q6H 7 Days #5 ml 01/07/24 0.3% Ophth Soln] Amoxicillin 875 mg PO Q8H 10 Days #30 capsule 01/17/24 Allergies Allergy/AdvReac Type Severity Reaction Status Date / Time No Known Allergies Allergy Verified 01/17/24 13:52 Review of Systems ROS Statement: Those systems with pertinent positive or pertinent negative responses have been documented in the HPI. ROS Other: All systems not noted in ROS Statement are negative. Past Medical History Past Medical History: Coronary Artery Disease (CAD), Hypertension, Myocardial Infarction ([place]) Last Myocardial Infarction Date:: 2018 History of Any Multi-Drug Resistant Organisms: None Reported Past Surgical History: Coronary Bypass/CABG, Heart Catheterization With Stent Additional Past Surgical History / Comment(s): Quadruple Bypass 2019 Date of Last Stent Placement:: 2019 Past Psychological History: No Psychological Hx Reported Smoking Status: Former smoker, Vaper Past Alcohol Use History: None Reported Past Drug Use History: None Reported General Exam Limitations: no limitations General appearance: alert, in no apparent distress Head exam: Present: atraumatic, normocephalic, normal inspection Eye exam: Present: normal appearance, PERRL, EOMI. Absent: scleral icterus, conjunctival injection, periorbital swelling Expanded Ear exam: Present: normal external inspection TM/Canal exam: Erythema: Left TM Mouth exam: Present: normal external inspection Neck exam: Present: normal inspection, lymphadenopathy (left anterior cervical chain). Absent: tenderness, meningismus Respiratory exam: Present: normal lung sounds bilaterally. Absent: respiratory distress, wheezes, rales, rhonchi, stridor Cardiovascular Exam: Present: regular rate, normal rhythm, normal heart sounds. Absent: systolic murmur, diastolic murmur, rubs, gallop, clicks GI/Abdominal exam: Present: soft, normal bowel sounds. Absent: distended, tenderness, guarding, rebound, rigid Extremities exam: Present: normal inspection, full ROM, normal capillary refill. Absent: tenderness, pedal edema, joint swelling, calf tenderness Back exam: Present: normal inspection Neurological exam: Present: alert, oriented X3, CN II-XII intact Psychiatric exam: Present: normal affect, normal mood Skin exam: Present: warm, dry, intact, normal color. Absent: rash Course Vital Signs 01/17/24 01/17/24 13:50 14:08 Temperature 98.2 F Pulse Rate 89 Respiratory 18 20 Rate Blood Pressure 132/73 O2 Sat by Pulse 99 Oximetry Medical Decision Making - Medical Decision Making Was pt. sent in by a medical professional or institution ([facility], SERVER ADMINISTRATOR, urgent care, hospital, or correction...) When possible be specific @ -No Did you speak to anyone other than the patient for history (EMS, parent, family, police, friend...)? What history was obtained from this source @ -No Did you review nursing and triage notes (agree or disagree)? Why? @ -I reviewed and agree with nursing and triage notes Were old charts reviewed (outside hosp., previous admission, EMS record, old EKG, old radiological studies, urgent care reports/EKG's, correction records)? Report findings @ -No old charts were reviewed Differential Diagnosis (chest pain, altered mental status, abdominal pain women, abdominal pain men, vaginal bleeding, weakness, fever, dyspnea, syncope, headache, dizziness, GI bleed, back pain, seizure, CVA, palpatations, mental health, musculoskeletal)? @ -differential: Otitis media, otitis externa, sinusitis, EKG interpreted by me (3pts min.). @ -None X-rays interpreted by me (1pt min.). @ -None done CT interpreted by me (1pt min.). @ -None done U/S interpreted by me (1pt. min.). @ -None done What testing was considered but not performed or refused? (CT, X-rays, U/S, labs)? Why? @ -None What meds were considered but not given or refused? Why? @ -None Did you discuss the management of the patient with other professionals (professionals i.e. , PA, SERVER ADMINISTRATOR, lab, RT, psych nurse, social welfare administrator, sparmaker, teacher, maritime officer, case briefer)? Give summary @ -No Was smoking cessation discussed for >3mins.? @ -No Was critical care preformed (if so, how long)? @ -No Were there social determinants of health that impacted care today? How? (Homelessness, low income, unemployed, alcoholism, drug addiction, transportation, low edu. Level, literacy, decrease access to med. care, nursing home, rehab)? @ -No Was there de-escalation of care discussed even if they declined (Discuss DNR or withdrawal of care, Hospice)? DNR status @ -No What co-morbidities impacted this encounter? (DM, HTN, Smoking, COPD, CAD, Cancer, CVA, ARF, Chemo, Hep., AIDS, mental health diagnosis, sleep apnea, morbid obesity)? @ -None Was patient admitted / discharged? Hospital course, mention meds given and route, prescriptions, significant lab abnormalities, going to OR and other pertinent info. @ -Discharged. 58-year-old male with chief complaint of left ear pain. On physical exam left ear has signs of cerumen and caseous material in the canal, canal is erythematous and swollen. TM is intact and bulging. Stable for discharge. Patient discharged with 10-day antibiotic of amoxicillin. Undiagnosed new problem with uncertain prognosis? @ -No Drug Therapy requiring intensive monitoring for toxicity (Heparin, Nitro, Insulin, Cardizem)? @ -No Were any procedures done? @ -No Diagnosis/symptom? @ -otitis media Acute, or Chronic, or Acute on Chronic? @ -Acute Uncomplicated (without systemic symptoms) or Complicated (systemic symptoms)? @ -Uncomplicated Side effects of treatment? @ -No Exacerbation, Progression, or Severe Exacerbation? @ -No Poses a threat to life or bodily function? How? (Chest pain, [place], [place], pneumonia, PE, COPD, DKA, ARF, appy, cholecystitis, CVA, Diverticulitis, Homicidal, Suicidal, threat to staff... and all critical care pts) @ -No Disposition Clinical Impression: Otitis media Narrative: Please return to the Emergency Department if symptoms worsen or any other concerns. complete antibiotic in its entirety. Disposition: HOME SELF-CARE Condition: Good Instructions (If sedation given, give patient instructions): Ear Infection (ED) Prescriptions: Amoxicillin 875 mg PO Q8H 10 Days #30 capsule Is patient prescribed a controlled substance at d/c from ED?: No Referrals: None,Stated [Primary Care Provider] - 1-2 days Time of Disposition: 14:23
[2024-01-17 14:55] VITALS: BP 140/75; PULSE 90; RESP 18; TEMP 98.4
== END 2024-01-17 14:40 | disposition home or self-care (01) ==
LOC: EC 13:48
DX: H66.92 Otitis media, unspecified, left ear (principal); I25.10 Atherosclerotic heart disease of native coronary artery without angina pectoris; I10 Essential (primary) hypertension; I25.2 Old myocardial infarction; F17.290 Nicotine dependence, other tobacco product, uncomplicated; Z79.82 Long term (current) use of aspirin
CPT/HCPCS: 99282

== ENCOUNTER 2024-02-08 14:46 | Emergency (ER) | payer OTHER ==
[2024-02-08 15:15] VITALS: RESP 18; TEMP 98
--- NOTE | 2024-02-08 16:02 | ED ---
ENT HPI - General Chief complaint: ENT Stated complaint: Pain in L leg, sore throat Time Seen by Provider: 02/08/24 15:32 Source: patient, RN notes reviewed, old records reviewed Mode of arrival: ambulatory Limitations: no limitations - History of Present Illness Initial comments: This is a 58-year-old male to the ER patient presents today for evaluation in regards to multiple complaints back pain neck pain throat pain sore throat difficulty with ambulation pain down his left leg. All of these issues he has been suffering for a few weeks now with the back pain going on for years. Patient states his pain is not getting w better despite medications at home. Patient was prescribed antibiotics and did not finish them and they elected or designated timeframe. Patient has no difficulties eating or drinking, no loss of bowel or bladder and no trauma no fevers MD complaint: sore throat, other (Back pain left leg pain) -: week(s) Location: throat Severity: moderate Severity scale (1-10): 6 Quality: aching, dull Consistency: intermittent Improves with: none Worsens with: none Associated Symptoms: sore throat - Related Data Home Medications Medication Instructions Recorded Confirmed Aspirin EC [Ecotrin Low Dose] 81 mg PO DAILY 08/22/22 01/01/23 Previous Rx's Medication Instructions Recorded amLODIPine 10 mg PO DAILY #30 tab 08/22/22 Atorvastatin [Lipitor] 40 mg PO DAILY #30 tab 11/18/22 Metoprolol Succinate (ER) [Toprol 50 mg PO DAILY #30 tab 11/18/22 XL] Nitroglycerin 0.4 mg SL Q5M PRN #30 tab 11/18/22 Tobramycin 0.3% Ophth Soln [Tobrex 1 drop TOPICAL Q6H 7 Days #5 ml 01/07/24 0.3% Ophth Soln] Amoxicillin 875 mg PO Q8H 10 Days #30 capsule 01/17/24 Amoxic-Pot Clav 875-125Mg 1 tab PO Q12HR #20 tablet 02/08/24 [Augmentin 875-125] Allergies Allergy/AdvReac Type Severity Reaction Status Date / Time No Known Allergies Allergy Verified 02/08/24 14:54 Review of Systems ROS Statement: Those systems with pertinent positive or pertinent negative responses have been documented in the HPI. ROS Other: All systems not noted in ROS Statement are negative. Past Medical History Past Medical History: Coronary Artery Disease (CAD), Hypertension, Myocardial Infarction ([place]) Last Myocardial Infarction Date:: 2018 History of Any Multi-Drug Resistant Organisms: None Reported Past Surgical History: Coronary Bypass/CABG, Heart Catheterization With Stent Additional Past Surgical History / Comment(s): Quadruple Bypass 2018 Date of Last Stent Placement:: 2019 Past Psychological History: No Psychological Hx Reported Smoking Status: Former smoker, Vaper Past Alcohol Use History: None Reported Past Drug Use History: None Reported General Exam Limitations: no limitations General appearance: alert, in no apparent distress Head exam: Present: atraumatic, normocephalic, normal inspection Eye exam: Present: normal appearance, PERRL, EOMI. Absent: scleral icterus, conjunctival injection, periorbital swelling ENT exam: Present: normal exam, mucous membranes moist Neck exam: Present: normal inspection. Absent: tenderness, meningismus, lymphadenopathy Respiratory exam: Present: normal lung sounds bilaterally. Absent: respiratory distress, wheezes, rales, rhonchi, stridor Cardiovascular Exam: Present: regular rate, normal rhythm, normal heart sounds. Absent: systolic murmur, diastolic murmur, rubs, gallop, clicks GI/Abdominal exam: Present: soft, normal bowel sounds. Absent: distended, tenderness, guarding, rebound, rigid Extremities exam: Present: normal inspection, full ROM, normal capillary refill. Absent: tenderness, pedal edema, joint swelling, calf tenderness Back exam: Present: normal inspection Neurological exam: Present: alert, oriented X3, CN II-XII intact Psychiatric exam: Present: normal affect, normal mood Skin exam: Present: warm, dry, intact, normal color. Absent: rash Course Vital Signs 02/08/24 02/08/24 14:52 19:27 Temperature 98 F Pulse Rate 82 73 Respiratory 18 18 Rate Blood Pressure 165/90 167/108 O2 Sat by Pulse 98 98 Oximetry - Reevaluation(s) Reevaluation #1: 02/08/24 17:13 Medical records reviewed Reevaluation #2: 02/08/24 17:45 Patient symptoms are unchanged Reevaluation #3: 02/08/24 17:45 Patient informed of results and questions answered Reevaluation #4: Was pt. sent in by a medical professional or institution (, PA, BILLET EXAMINER, urgent care, hospital, or halfway...) When possible be specific @ -no Did you speak to anyone other than the patient for history (EMS, parent, family, police, friend...)? What history was obtained from this source @ -no Did you review nursing and triage notes (agree or disagree)? Why? @ -agree Are old charts reviewed (outside hosp., previous admission, EMS record, old EKG, old radiological studies, urgent care reports/EKG's, halfway records)? Report findings @ -yes Differential Diagnosis (chest pain, altered mental status, abdominal pain women, abdominal pain men, vaginal bleeding, weakness, fever, dyspnea, syncope, headache, dizziness, GI bleed, back pain, seizure, CVA, palpatations, mental health, musculoskeletal)? @ -prior EKG interpreted by me (3pts min.). @ -yes X-rays interpreted by me (1pt min.). @ -yes negative for acute disease CT interpreted by me (1pt min.). @ -no U/S interpreted by me (1pt. min.). @ -no What testing was considered but not performed or refused? (CT, X-rays, U/S, labs)? Why? @ -none What meds were considered but not given or refused? Why? @ -none Did you discuss the management of the patient with other professionals (silvino costa i.eKiera Hunter, PA, BILLET EXAMINER, lab, RT, psych nurse, social services counselor, immunologist, teacher, public affairs officer, case management assistant)? Give summary @ -no Was smoking cessation discussed for >3mins.? @ -no Was critical care preformed (if so, how long)? @ -no Were there social determinants of health that impacted care today? How? (Homelessness, low income, unemployed, alcoholism, drug addiction, transportation, low edu. Level, literacy, decrease access to med. care, retirement, rehab)? @ -none Was there de-escalation of care discussed even if they declined (Discuss DNR or withdrawal of care, Hospice)? DNR status @ -no What co-morbidities impacted this encounter? (DM, HTN, Smoking, COPD, CAD, Cancer, CVA, ARF, Chemo, Hep., AIDS, mental health diagnosis, sleep apnea, morbid obesity)? @ -none Was patient admitted / discharged? Hospital course, mention meds given and route, prescriptions, significant lab abnormalities, going to OR and other pertinent info. @ - 58 male with multiple nonspecific symptoms surrounding sore throat back pain. Patient has normal imaging here in the ER negative imaging and is in no acute distress. Patient can be discharged home Discharge Undiagnosed new problem with uncertain prognosis? @ -no Drug Therapy requiring intensive monitoring for toxicity (Heparin, Nitro, Insulin, Cardizem)? @ -no Were any procedures done? @ -no Diagnosis/symptom? @ -Sore throat back pain viral illness Acute, or Chronic, or Acute on Chronic? @ -Acute Uncomplicated (without systemic symptoms) or Complicated (systemic symptoms)? @ -Complicated Side effects of treatment? @ -no Exacerbation, Progression, or Severe Exacerbation? @ -exacerbation Poses a threat to life or bodily function? How? (Chest pain, [place], [place], pneumonia, PE, COPD, DKA, ARF, appy, cholecystitis, CVA, Diverticulitis, Homicidal, Suicidal, threat to staff... and all critical care pts) @ -no Reevaluation #5: Differential Back Pain: Strain, zoster, cauda equina syndrome, epidural abscess, vertebral osteomyelitis, discitis, fracture, subluxation, disc herniation, DJD, spinal stenosis, dissection, AAA, pancreatitis, peptic ulcer disease, pyelonephritis, kidney stone, this is not meant to be an all-inclusive list. Medical Decision Making - Medical Decision Making 58 male with multiple nonspecific symptoms surrounding sore throat back pain. Patient has normal imaging here in the ER negative imaging and is in no acute distress. Patient can be discharged home - Lab Data Lab Results 02/08/24 02/08/24 Range/Units 16:42 16:42 Influenza Type A (PCR) Not Detected (Not Detectd) Influenza Type B (PCR) Not Detected (Not Detectd) RSV (PCR) Not Detected (Not Detectd) SARS-CoV-2 (PCR) Not Detected (Not Detectd) Group A Strep (PCR) NOT DETECTED (Not Detectd) - Radiology Data Radiology results: report reviewed (X-ray soft tissue neck as well as lumbar spine reviewed and patient can be discharged home), image reviewed Disposition Clinical Impression: Sore throat, Back pain, Left leg pain, Neck pain, MAGDA (acute kidney injury) Disposition: HOME SELF-CARE Condition: Fair Instructions (If sedation given, give patient instructions): Strep Throat (ED), Acute Low Back Pain (ED), Earache (ED), Lumbar Radiculopathy (ED), Chronic Back Pain (DC) Prescriptions: Amoxic-Pot Clav 875-125Mg [Augmentin 875-125] 1 tab PO Q12HR #20 tablet Is patient prescribed a controlled substance at d/c from ED?: No Referrals: None,Stated [Primary Care Provider] - 1-2 days Time of Disposition: 17:55
[2024-02-08] MEDS: dexAMETHasone 2 MG TAB PO STA (16:54)
[2024-02-08] MEDS: KETOROLAC 15 MG/ML 1 ML VIAL IM STA (16:55)
[2024-02-08] MEDS: traMADol 50 MG TAB PO STA (18:10)
[2024-02-08] MEDS: traMADol 50 MG STARTER PACK 3 TAB BTL PO STA (18:11)
[2024-02-08] MEDS: IBUPROFEN 600 MG STARTER PACK 4 TAB BTL PO STA (18:11)
[2024-02-08] MEDS ORDERED: AMOXIC-POT CLAV 875-125MG 1 EACH TAB PO STA (19:19)
[2024-02-08] MEDS ORDERED: AMOXIC-POT CLAV 875MG STARTER PACK 2 TAB BTL PO STA (19:19)
--- NOTE | 2024-02-08 19:36 | XR ---
EXAMINATION TYPE: XR lumbar spine 2 or 3V DATE OF EXAM: 02/08/2024 4:32 PM CLINICAL INDICATION:Male, 58 years old with history of pain; [facility] COMPARISON: None TECHNIQUE: XR lumbar spine 2 or 3V - Frontal, lateral and coned down L5-S1 lateral views of the lumba r spine. FINDINGS: There are 5 lumbar-type vertebral bodies. Mineralization appears within normal limits. No osseous josé miguel tructive process seen. Vertebral body heights are preserved, no evidence of compression fracture. The re is normal alignment of the lumbar vertebral bodies. There is minimal disc space narrowing at the u pper lumbar levels, and moderate to severe disc space narrowing with marginal osteophytes and vacuum disc phenomenon L5-S1, with moderate facet disease at this level. There is likely some degree of mild to moderate canal and neural foraminal stenoses. Soft tissue show no clear evidence of an acute abnormality. Moderate stool in the colon. Partially seen hip arthropathy, left worse than right. IMPRESSION: 1. No radiographic evidence of acute lumbar compression fracture. 2. Moderate degenerative changes at L5-S1 as described.
--- NOTE | 2024-02-08 19:39 | XR ---
EXAMINATION TYPE: XR soft tissue neck DATE OF EXAM: 02/08/2024 4:37 PM CLINICAL INDICATION:Male, 58 years old with history of pain; sore throat COMPARISON: None TECHNIQUE: The soft tissues of the neck were imaged in frontal and lateral views. FINDINGS: The prevertebral soft tissues appear unremarkable. There is no evidence of mass effect or tracheal de viation. Epiglottis appears relatively defined. Airway appears patent without evidence of hypopharyn geal distention or subglottic narrowing. No acute osseous abnormality demonstrated. Mild degenerativ e changes. Partially seen sternal wires in the upper chest. Clear lung apices. IMPRESSION: No significant abnormality identified within the soft tissues of the neck.
[2024-02-08 20:02] VITALS: BP 167/108; PULSE 73
== END 2024-02-08 19:29 | disposition home or self-care (01) ==
LOC: EC 14:46
DX: M79.605 Pain in left leg (principal); J02.9 Acute pharyngitis, unspecified; M54.2 Cervicalgia; N17.9 Acute kidney failure, unspecified; M54.9 Dorsalgia, unspecified; F17.290 Nicotine dependence, other tobacco product, uncomplicated; Z11.52 Encounter for screening for COVID-19
CPT/HCPCS: 87651; 87636; 70360; 72100; 99284; 96372; J8540; J1885

== ENCOUNTER 2024-02-18 20:38 | Emergency (ER) | payer OTHER ==
[2024-02-18 21:02] VITALS: PULSE 71; RESP 18; TEMP 97.3
--- NOTE | 2024-02-18 21:38 | ED ---
General Adult HPI - General Chief complaint: Extremity Problem,Nontraumatic Stated complaint: L Leg Pain Time Seen by Provider: 02/18/24 20:48 Source: patient, RN notes reviewed Mode of arrival: ambulatory Limitations: no limitations - History of Present Illness Initial comments: 58-year-old male presents to the emergency department for evaluation of left leg pain. He states that this has been going on for years. He states that it is fairly constant. He notes that he was at work and his leg gave out so his work wanted him to come in for evaluation. He reports that most of the pain is in the left hip. Denies fever, skin changes. Denies any significant injury. Denies pain in his back or buttock. Denies loss of bowel or bladder function, denies saddle anesthesia. He admits to taking ibuprofen for this which helps. - Related Data Home Medications Medication Instructions Recorded Confirmed Aspirin EC [Ecotrin Low Dose] 81 mg PO DAILY 08/22/22 01/01/23 Previous Rx's Medication Instructions Recorded amLODIPine 10 mg PO DAILY #30 tab 08/22/22 Atorvastatin [Lipitor] 40 mg PO DAILY #30 tab 11/18/22 Metoprolol Succinate (ER) [Toprol 50 mg PO DAILY #30 tab 11/18/22 XL] Nitroglycerin 0.4 mg SL Q5M PRN #30 tab 11/18/22 Tobramycin 0.3% Ophth Soln [Tobrex 1 drop TOPICAL Q6H 7 Days #5 ml 01/07/24 0.3% Ophth Soln] Amoxicillin 875 mg PO Q8H 10 Days #30 capsule 01/17/24 Amoxic-Pot Clav 875-125Mg 1 tab PO Q12HR #20 tablet 02/08/24 [Augmentin 875-125] Lidocaine 5% Patch [Lidoderm 5% 1 patch TOPICAL DAILY #30 patch 02/18/24 Patch] Allergies Allergy/AdvReac Type Severity Reaction Status Date / Time No Known Allergies Allergy Verified 02/18/24 20:46 Review of Systems ROS Statement: Those systems with pertinent positive or pertinent negative responses have been documented in the HPI. ROS Other: All systems not noted in ROS Statement are negative. Past Medical History Past Medical History: Coronary Artery Disease (CAD), Hypertension, Myocardial Infarction ([place]) Last Myocardial Infarction Date:: 2018 History of Any Multi-Drug Resistant Organisms: None Reported Past Surgical History: Coronary Bypass/CABG, Heart Catheterization With Stent Additional Past Surgical History / Comment(s): Quadruple Bypass 2018 Date of Last Stent Placement:: 2018 Past Psychological History: No Psychological Hx Reported Smoking Status: Former smoker, Vaper Past Alcohol Use History: None Reported Past Drug Use History: None Reported General Exam Limitations: no limitations General appearance: alert, in no apparent distress Head exam: Present: atraumatic, normocephalic, normal inspection Eye exam: Present: normal appearance, PERRL, EOMI. Absent: scleral icterus, conjunctival injection, periorbital swelling ENT exam: Present: normal exam, mucous membranes moist Respiratory exam: Present: normal lung sounds bilaterally. Absent: respiratory distress, wheezes, rales, rhonchi, stridor Cardiovascular Exam: Present: regular rate, normal rhythm, normal heart sounds. Absent: systolic murmur, diastolic murmur, rubs, gallop, clicks Extremities exam: Present: normal inspection, full ROM, tenderness (Left hip), normal capillary refill, other (Distal pulses intact). Absent: pedal edema, joint swelling, calf tenderness Back exam: Present: normal inspection, full ROM. Absent: tenderness Neurological exam: Present: alert, oriented X3 Psychiatric exam: Present: normal affect, normal mood Skin exam: Present: warm, dry, intact, normal color. Absent: rash Course Vital Signs 02/18/24 02/18/24 20:44 22:39 Temperature 97.3 F L Pulse Rate 71 71 Respiratory 18 18 Rate Blood Pressure 171/99 168/99 O2 Sat by Pulse 98 96 Oximetry Medical Decision Making - Medical Decision Making Was pt. sent in by a medical professional or institution (, PA, PNEUMATIC TOOL OPERATOR, urgent care, hospital, or senior living...) When possible be specific @ -No Did you speak to anyone other than the patient for history (EMS, parent, family, police, friend...)? What history was obtained from this source @ -No Did you review nursing and triage notes (agree or disagree)? Why? @ -I reviewed and agree with nursing and triage notes Were old charts reviewed (outside hosp., previous admission, EMS record, old EKG, old radiological studies, urgent care reports/EKG's, senior living records)? Report findings @ -No old charts were reviewed Differential Diagnosis (chest pain, altered mental status, abdominal pain women, abdominal pain men, vaginal bleeding, weakness, fever, dyspnea, syncope, headache, dizziness, GI bleed, back pain, seizure, CVA, palpatations, mental health, musculoskeletal)? @ -Differential Musculoskeletal Muscular strain, contusion, ligament sprain, fracture, arthritis, septic arthritis, bursitis, cellulitis, muscle spasm, nerve compression, DVT, arterial occlusion, herpes zoster, electrolyte abnormality, tumor.... This is not meant to be in all inclusive list EKG interpreted by me (3pts min.). @ -None X-rays interpreted by me (1pt min.). @ -X-ray left femur shows moderate to severe osteoarthritis with no acute fracture or dislocation CT interpreted by me (1pt min.). @ -None done U/S interpreted by me (1pt. min.). @ -None done What testing was considered but not performed or refused? (CT, X-rays, U/S, labs)? Why? @ -None What meds were considered but not given or refused? Why? @ -None Did you discuss the management of the patient with other professionals (professionals i.e. , PA, PNEUMATIC TOOL OPERATOR, lab, RT, psych nurse, social work coordinator, drawing checker, teacher, environmental compliance officer, piano case and bench assembler)? Give summary @ -No Was smoking cessation discussed for >3mins.? @ -No Was critical care preformed (if so, how long)? @ -No Were there social determinants of health that impacted care today? How? (Homelessness, low income, unemployed, alcoholism, drug addiction, transportation, low edu. Level, literacy, decrease access to med. care, care home, rehab)? @ -No Was there de-escalation of care discussed even if they declined (Discuss DNR or withdrawal of care, Hospice)? DNR status @ -No What co-morbidities impacted this encounter? (DM, HTN, Smoking, COPD, CAD, Can cer, CVA, ARF, Chemo, Hep., AIDS, mental health diagnosis, sleep apnea, morbid obesity)? @ -None Was patient admitted / discharged? Hospital course, mention meds given and route, prescriptions, significant lab abnormalities, going to OR and other pertinent info. @ -Discharge. Patient presented to the emergency department for evaluation of left leg pain x 2 years. He does report pain with ambulation. Pain is in his left lateral hip and upper thigh. He does report that ibuprofen is helpful. Patient has full range of motion at the hip, tenderness palpation over the left hip, no overlying skin changes. Distal pulses intact. X-rays obtained which show moderate to severe osteoarthritis with no acute fracture. Advised patient to follow-up with local PCP and orthopedics. Prescription sent for lidocaine patches. Patient understanding and agreeable with discharge plan. Patient stable at time of discharge. Case discussed with Dr. Aguero Undiagnosed new problem with uncertain prognosis? @ -No Drug Therapy requiring intensive monitoring for toxicity (Heparin, Nitro, Insulin, Cardizem)? @ -No Were any procedures done? @ -No Diagnosis/symptom? @ -Left hip osteoarthritis Acute, or Chronic, or Acute on Chronic? @ -Acute Uncomplicated (without systemic symptoms) or Complicated (systemic symptoms)? @ -Uncomplicated Side effects of treatment? @ -No Exacerbation, Progression, or Severe Exacerbation? @ -No Poses a threat to life or bodily function? How? (Chest pain, [place], [place], pneumonia, PE, COPD, DKA, ARF, appy, cholecystitis, CVA, Diverticulitis, Homicidal, Suicidal, threat to staff... and all critical care pts) @ -No Disposition Clinical Impression: Left leg pain, Osteoarthritis Disposition: HOME SELF-CARE Condition: Stable Instructions (If sedation given, give patient instructions): Osteoarthritis (ED) Additional Instructions: Please follow up with a primary care provider and orthopedics. Utilize the lidocaine patches. Return to the emergency department for new or worsening symptoms. Prescriptions: Lidocaine 5% Patch [Lidoderm 5% Patch] 1 patch TOPICAL DAILY #30 patch Is patient prescribed a controlled substance at d/c from ED?: No Referrals: None,Stated [Primary Care Provider] - 1-2 days Elliott Pendleton MD [STAFF PHYSICIAN] - 1-2 days
--- NOTE | 2024-02-18 22:01 | XR ---
EXAMINATION TYPE: XR femur LT DATE OF EXAM: 02/18/2024 9:56 PM CLINICAL INDICATION:Male, 58 years old with history of pain; [facility] COMPARISON: None TECHNIQUE: The left femur was examined in Frontal and lateral projections. FINDINGS: No evidence of acute osseous pathology, joint dislocation, or soft tissue swelling. Few sc attered vascular calcifications identified. Moderate to severe osteophytic changes of the hip joint a re identified with subchondral sclerosis, joint space narrowing, and subchondral cyst formation. IMPRESSION: 1. No acute osseous pathology. 2. Moderate to severe left hip osteoarthritis.
[2024-02-18] MEDS: LIDOCAINE 4% PATCH TOPICAL ONE (22:09)
[2024-02-18] MEDS: KETOROLAC 15 MG/ML 1 ML VIAL IM STA (22:10)
[2024-02-18 22:56] VITALS: BP 168/99
== END 2024-02-18 22:40 | disposition home or self-care (01) ==
LOC: EC 20:38
DX: M16.12 Unilateral primary osteoarthritis, left hip (principal); F17.290 Nicotine dependence, other tobacco product, uncomplicated
CPT/HCPCS: 73552; 99283; 96372; J1885

== ENCOUNTER → 2024-05-06 | Outpatient (CLI) | payer OTHER ==
--- NOTE | 2024-05-06 16:13 | XR ---
EXAMINATION TYPE: XR chest 2V DATE OF EXAM: 05/06/2024 COMPARISON: 01/01/2023 HISTORY: 58-year-old male recheck after heart surgery in 2019, shortness of breath, [id number] TECHNIQUE: Frontal and lateral views FINDINGS: Median sternotomy wires are present post CABG clips. Heart normal size. Aorta and pulmonary vasculatu re within normal limits. Interstitial prominence and mild hyperinflation are unchanged. IMPRESSION: Correlate for underlying COPD. Mild bronchial wall thickening could reflect bronchitis or asthma.
[2024-05-06 18:25] LABS: Creatinine,Urine Random 203.4 mg/dL; Protein/Creatinine Ratio,Urine 0.044
[2024-05-06 18:31] LABS: Basophils # (A) 0.03 X 10*3/uL (0.00-0.10); Basophils % (A) 0.6 %; Eosinophils # (A) 0.18 X 10*3/uL (0.04-0.35); Eosinophils % (A) 3.6 %; HCT 46.3 % (39.6-50.0); HGB 14.9 g/dL (13.0-17.0); Lymphocytes # (A) 1.55 X 10*3/uL (0.90-5.00); Lymphocytes % (A) 31.1 %; MCH 27.2 pg (27.0-32.0); MCHC 32.2 g/dL (32.0-37.0); MCV 84.5 FL (80.0-97.0); Mean Platelet Volume 11.2 FL (9.5-12.2); Monocytes # (A) 0.47 X 10*3/uL (0.20-1.00); Monocytes % (A) 9.4 %; NRBC Per 100 WBC 0 X 10*3/uL (0.00-0.01); Neutrophils # (A) 2.74 X 10*3/uL (1.80-7.70); Neutrophils % (A) 54.9 %; Platelet Count 251 X 10*3/uL (140-440); RBC 5.48 X 10*6/uL (4.40-5.60); RDW 15.3 % (11.5-14.5); WBC 4.99 X 10*3/uL (4.50-10.00)
[2024-05-06 18:40] LABS: Erythrocyte Sedimentation Rate 22 mm/Hr (0-20)
[2024-05-06 19:57] LABS: % Iron Saturation 17.51 (15.00-50.00); ALT 21 U/L (10-49); AST 24 U/L (14-35); Albumin 4.8 g/dL (3.8-4.9); Albumin/Globulin Ratio 1.78 Ratio (1.60-3.17); Alkaline Phosphatase 60 U/L (41-126); BUN/Creat Ratio 11.85 Ratio (12.00-20.00); Blood Urea Nitrogen 15.4 mg/dL (9.0-27.0); Calcium 10.3 mg/dL (8.7-10.3); Carbon Dioxide 24.3 mmol/L (21.6-31.8); Chloride 105 mmol/L (96-109); Chol/HDL Ratio 8.19 Ratio; Creatine Kinase 420 U/L (35-257); Globulin 2.7 g/dL (1.6-3.3); Glucose 92 mg/dL (70-110); Iron 66 UG/DL (65-175); LDL Cholesterol,Calculated 256.7 mg/dL (0.0-131.0); Phosphorus 3.3 mg/dL (2.4-5.1); Potassium 4.7 mmol/L (3.5-5.5); Prostate Specific Antigen 0.31 ng/mL (0.000-3.500); Sodium 140 mmol/L (135-145); Total Bilirubin 0.3 mg/dL (0.3-1.2); Total Iron Binding Capacity 377 UG/DL (228-460); Total Protein 7.5 g/dL (6.2-8.2); Uric Acid 6.6 mg/dL (3.7-8.7)
[2024-05-07 03:32] LABS: Appearance,Urine Turbid (Clear); Bilirubin,Urine Negative (Negative); Blood,Urine Negative (Negative); Color,Urine Yellow (Yellow); Ketones,Urine Negative (Negative); Nitrite,Urine Negative (Negative); Urobilinogen,Urine 0.2 E.U./DL
[2024-05-07 03:39] LABS: Bacteria,Urine None Seen (None Seen)
== END | disposition home or self-care (01) ==
LOC: LABWHC1 14:07
PROVIDERS: ATTEND Internal Medicine
DX: Z00.00 Encounter for general adult medical examination without abnormal findings (principal); J98.09 Other diseases of bronchus, not elsewhere classified; N40.0 Benign prostatic hyperplasia without lower urinary tract symptoms; J44.9 Chronic obstructive pulmonary disease, unspecified; I10 Essential (primary) hypertension; E78.5 Hyperlipidemia, unspecified; E11.65 Type 2 diabetes mellitus with hyperglycemia; E03.9 Hypothyroidism, unspecified; R80.9 Proteinuria, unspecified; E55.9 Vitamin D deficiency, unspecified; D64.9 Anemia, unspecified
CPT/HCPCS: 36415; 71046; 80053; 80061; 81001; 82043; 82306; 82550; 82570; 82728; 83036; 83540; 83550; 83735; 84100; 84153; 84156; 84443; 84550; 85025; 85652; 86140

== ENCOUNTER 2024-08-25 11:41 | Emergency (ER) | payer OTHER ==
--- NOTE | 2024-08-25 11:55 | ED ---
General Adult HPI - General Stated complaint: AMS Time Seen by Provider: 08/25/24 11:42 - History of Present Illness Initial comments: Dictation was produced using [employer] dictation software. please excuse any grammatical, word or spelling errors. Chief Complaint: 59-year-old male with hypertension presents to the ER for headache and altered mental status History of Present Illness: Patient is a 59-year-old male he [facility] he was found to be altered since yesterday. They performed a drug screen on him but found to be negative. Patient has a history of hypertension takes blood pressure medications. Patient is a poor historian states he has a frontal headache that is 8 out of 10. He is a poor historian. EMS who aids in providing history present illness states this is systolic blood pressures in the 220s. Patient denies any paresthesias numbness tingling to the extremities. The ROS documented in this emergency department record has been reviewed and confirmed by me. Those systems with pertinent positive or negative responses have been documented in the HPI. All other systems are other negative and/or noncontributory. - Related Data Home Medications Medication Instructions Recorded Confirmed Atorvastatin [Lipitor] 40 mg PO HS 08/25/24 08/25/24 Metoprolol Tartrate [Lopressor] 25 mg PO BID 08/25/24 08/25/24 Nicotine 14Mg/24Hr Patch [Habitrol 1 patch TRANSDERM DAILY 08/25/24 08/25/24 14Mg/24Hr Patch] lisinopriL [Zestril] 20 mg PO DAILY 08/25/24 08/25/24 Previous Rx's Medication Instructions Recorded amLODIPine 10 mg PO DAILY #30 tab 08/22/22 Nitroglycerin 0.4 mg SL Q5M PRN #30 tab 11/18/22 Allergies Allergy/AdvReac Type Severity Reaction Status Date / Time No Known Allergies Allergy Verified 08/25/24 11:59 Review of Systems ROS Statement: Those systems with pertinent positive or pertinent negative responses have been documented in the HPI. ROS Other: All systems not noted in ROS Statement are negative. Past Medical History Past Medical History: Coronary Artery Disease (CAD), Hypertension, Myocardial Infarction ([place]) Last Myocardial Infarction Date:: 2018 History of Any Multi-Drug Resistant Organisms: None Reported Past Surgical History: Coronary Bypass/CABG, Heart Catheterization With Stent Additional Past Surgical History / Comment(s): Quadruple Bypass 2018 Date of Last Stent Placement:: 2018 Past Psychological History: No Psychological Hx Reported Smoking Status: Former smoker, Vaper Past Alcohol Use History: None Reported Past Drug Use History: None Reported General Exam - General Exam Comments Initial Comments: PHYSICAL EXAM: General Impression: Alert and oriented x3, not in acute distress HEENT: Normocephalic atraumatic, extra-ocular movements intact, pupils equal and reactive to light bilaterally, mucous membranes moist. Cardiovascular: Heart regular rate and rhythm Chest: Able to complete full sentences, no retractions, no tachypnea Abdomen: abdomen soft, non-tender, non-distended, no organomegaly Musculoskeletal: Pulses present and equal in all extremities, no peripheral edema Motor: no focal deficits noted Neurological: CN II-XII grossly intact, no focal motor or sensory deficits noted Skin: Intact with no visualized rashes Psych: Normal affect and mood Course Vital Signs 08/25/24 08/25/24 11:50 12:17 Temperature 98.1 F Pulse Rate 109 H Respiratory 14 Rate Blood Pressure 247/125 O2 Sat by Pulse 99 Oximetry EKG Findings - EKG Comments: EKG Findings:: My EKG interpretation: Ventricular rate 94, sinus rhythm,. #174, QRS 80, QTc 427. No [place] prolongation, no QTC prolongation, no ST or T-wave changes noted. Overall, this EKG is unremarkable Medical Decision Making - Medical Decision Making Was pt. sent in by a medical professional or institution (, PA, BINGO CHECKER, urgent care, hospital, or [facility]...) When possible be specific @ -No Did you speak to anyone other than the patient for history (EMS, parent, family, police, friend...)? What history was obtained from this source @ -EMS as described above Did you review nursing and triage notes (agree or disagree)? Why? @ -I reviewed and agree with nursing and triage notes Were old charts reviewed (outside hosp., previous admission, EMS record, old EKG, old radiological studies, urgent care reports/EKG's, [facility] records)? Report findings @ -No old charts were reviewed Differential Diagnosis (chest pain, altered mental status, abdominal pain women, abdominal pain men, vaginal bleeding, musculoskeletal, weakness, fever, dyspnea, syncope, headache, dizziness, GI bleed, back pain, seizure, CVA, palpatations, mental health)? @ -Differential Headache: Migraine, tension, cluster, carbon monoxide, central venous thrombosis, pension karma temporal arteritis, acute closure glaucoma, intercranial hemorrhage, mastoiditis, sinusitis, head injury, this is not meant to be an all-inclusive list. EKG interpreted by me (3pts min.). @ -None done X-rays interpreted by me (1pt min.). @ -None done CT interpreted by me (1pt min.). @ -CT scan of the brain shows right intraparenchymal bleed with extension into the posterior horn of the right lateral ventricle U/S interpreted by me (1pt. min.). @ -None done What testing was considered but not performed or refused? (CT, X-rays, U/S, labs)? Why? @ -None What meds were considered but not given or refused? Why? @ -None Was smoking cessation discussed for >3mins.? @ -No Were there social determinants of health that impacted care today? How? (Homelessness, low income, unemployed, alcoholism, drug addiction, transportation, low edu. Level, literacy, decrease access to med. care, mcc, rehab)? @ -No Was there de-escalation of care discussed even if they declined (Discuss DNR or withdrawal of care, Hospice)? DNR status @ -No What co-morbidities impacted this encounter? (DM, HTN, Smoking, COPD, CAD, Cancer, CVA, ARF, Chemo, Hep., AIDS, mental health diagnosis, sleep apnea, morbid obesity)? @ -Hypertension Was patient admitted / discharged? Hospital course, mention meds given and route, prescriptions, significant lab abnormalities, going to OR and other pertinent info. @ -59-year-old male presents emergency department with headache and altered mental status. Vital signs upon arrival shows blood pressure of 247/125. Patient altered at the bedside however does not have any obvious focal neurologic deficits. Patient has strange demeanor. Patient rushed to CT scanner for CT brain. Shows right-sided intraparenchymal bleed. Case discussed with radiologist states that location is very atypical for aneurysmal bleed. Patient started on labetalol drip after given a labetalol push. Case discussed with Dr. Shipman at [facility] who is willing to accept patient as transfer for neurosurgery further care. Patient case also discussed with pharmacy resident who did not note any anticoagulation prescriptions filled within the last several months. Patient has been prescribed multiple blood pressure medications that he has not picked up. Patient's bleed is likely secondary to untreated chronic malignant hypertension Did you discuss the management of the patient with other professionals (professionals i.e. , PA, BINGO CHECKER, lab, RT, psych nurse, social science manager, tow motor operator, teacher, air antisubmarine officer, complex case manager)? Give summary @ -See above Was critical care preformed (if so, how long)? @ -Yes, 33 minutes Undiagnosed new problem with uncertain prognosis? @ -No Drug Therapy requiring intensive monitoring for toxicity (Heparin, Nitro, Insulin, Cardizem)? @ -No Were any procedures done? @ -No Diagnosis/symptom? Acute, or Chronic, or Acute on Chronic? Uncomplicated (without systemic symptoms) or Complicated (systemic symptoms)? @ -Hypertensive intracranial bleed, complicated Side effects of treatment? @ -No Exacerbation, Progression, or Severe Exacerbation? @ -No Poses a threat to life or bodily function? How? (Chest pain, [place], [place], pneumonia, PE, COPD, DKA, ARF, appy, cholecystitis, CVA, Diverticulitis, Homicidal, Suicidal, threat to staff... and all critical care pts) @ -Yes Disposition Clinical Impression: Intracranial bleed Disposition: OTHER INSTITUTION NOT DEFINED Condition: Critical Referrals: Nelson Linda MD [Primary Care Provider] - 1-2 days Time of Disposition: 12:26 - Out of Hospital Transfer - Req. Specs Out of Hospital Transfer - Requested Specifics: Other Emergency Center ([facility])
[2024-08-25 12:03] VITALS: TEMP 98.1
--- NOTE | 2024-08-25 12:21 | CT ---
EXAMINATION TYPE: CT brain wo con CT DLP: 1330.4 mGycm, Automated exposure control for dose reduction was used. DATE OF EXAM: 08/25/2024 12:13 PM COMPARISON: None. CLINICAL INDICATION:Male, 59 years old with history of headache, htn, headache, htn TECHNIQUE: Brain: Multiple axial CT images of the brain were obtained without IV contrast. . Coronal and sagitta l reformats reviewed. FINDINGS: Brain: Extra-axial spaces: No abnormal extra-axial fluid collections. Ventricular system: Small amount of layering blood products within the posterior horn of the right la teral ventricle and within the cerebral aqueduct of Sylvius. Mildly dilated lateral ventricles and th ird ventricle. Cerebral parenchyma: Acute intraparenchymal hemorrhage within the right caudate nucleus head. The gra y-white junction is well differentiated. Scattered hypoattenuating areas are seen within the perivent ricular white matter. Cerebellum: Unremarkable. Mass effect: No evidence of midline shift. Intracranial vasculature: unremarkable Soft tissues: Normal. Calvarium/osseous structures: No depressed skull fracture. Paranasal sinuses and mastoid air cells: Clear Visualized orbits: Orbital contents are intact. IMPRESSION: Acute intraparenchymal hemorrhage within the right caudate nucleus head. Additional small amount of i ntraventricular hemorrhage within the posterior horn of the right lateral ventricle and also the cere bral aqueduct of Sylvius. Resultant mild hydrocephalus. Nonspecific white matter changes which may re late to transependymal flow from hydrocephalus versus chronic small vessel ischemic disease. Findings discussed with Dr. Juan Bautista at 12:15 PM on 08/25/2024. [facility], , 08/25/2024 12:18 PM
[2024-08-25] MEDS: MORPHINE SULFATE 4 MG/ML SYRINGE IV STA (12:27)
[2024-08-25] MEDS: LABETALOL 5 MG/ML VIAL MDV IVP STA (12:28)
[2024-08-25] MEDS: LABETALOL 200 MG in SODIUM CHLORIDE 0.9% 160 ML IV SCH (12:29)
[2024-08-25 12:44] LABS: ALT 35 U/L (4-49); AST 48 U/L (17-59); African American GFR (CKD) 79 (>60 ml/min/1.73 sqM); Albumin 5.8 g/dL (3.5-5.0); Alkaline Phosphatase 79 U/L (38-126); Anion Gap 14 mmol/L; Blood Urea Nitrogen 20 mg/dL (9-20); Calcium 10.4 mg/dL (8.4-10.2); Carbon Dioxide 22 mmol/L (22-30); Chloride 105 mmol/L (98-107); Glucose 140 mg/dL (74-99); Non-African American GFR(CKD) 68 (>60 ml/min/1.73 sqM); Potassium 4.2 mmol/L (3.5-5.1); Sodium 141 mmol/L (137-145); Total Bilirubin 0.9 mg/dL (0.2-1.3); Total Protein 10.2 g/dL (6.3-8.2)
[2024-08-25 12:48] VITALS: BP 184/96; PULSE 76; RESP 18
[2024-08-25 12:54] LABS: Partial Thromboplastin Time 23.6 sec (22.0-30.0)
[2024-08-25 12:55] LABS: Basophils % (A) 0 %; Eosinophils # (A) 0.1 k/uL (0-0.7); Eosinophils % (A) 1 %; HCT 54.8 % (39.0-53.0); HGB 17.8 gm/dL (13.0-17.5); Lymphocytes # (A) 1.2 k/uL (1.0-4.8); Lymphocytes % (A) 15 %; MCHC 32.5 g/dL (31.0-37.0); Mean Platelet Volume 8.5; Monocytes # (A) 0.3 k/uL (0-1.0); Monocytes % (A) 3 %; Neutrophils # (A) 6.6 k/uL (1.3-7.7); Neutrophils % (A) 79 %; Platelet Count 244 k/uL (150-450); RBC 6.37 m/uL (4.30-5.90); RDW 14.9 % (11.5-15.5); WBC 8.3 k/uL (3.8-10.6)
== END 2024-08-26 08:13 | disposition other institution (70) ==
LOC: EC 11:41
DX: I62.9 Nontraumatic intracranial hemorrhage, unspecified (principal); F17.290 Nicotine dependence, other tobacco product, uncomplicated; Z95.1 Presence of aortocoronary bypass graft
CPT/HCPCS: 36415; 93005; 80053; 85025; 85610; 85730; 70450; 99291; 96365; 96375; J2270; J1920

== ENCOUNTER → 2024-09-28 | Outpatient (CLI) | payer OTHER ==
[2024-09-28 12:49] LABS: Appearance,Urine Clear (Clear); Bilirubin,Urine Negative (Negative); Blood,Urine Negative (Negative); Color,Urine Colorless; Glucose,Urine (UA) Negative (Negative); Ketones,Urine Negative (Negative); Leukocyte Esterase,Urine Negative (Negative); Mucus,Urine Rare /hpf; Nitrite,Urine Negative (Negative); PH, Urine 5.5 (5.0-8.0); Protein,Urine 1+ (Negative); Specific Gravity,Urine 1.018 (1.001-1.035); Urobilinogen,Urine <2.0 mg/dL (<2.0); WBC,Urine <1 /hpf (0-5)
[2024-09-28 12:54] LABS: Creatinine,Urine Random 99.2 mg/dL; Protein/Creatinine Ratio,Urine 0.494
[2024-09-28 16:11] LABS: Basophils # (A) 0.03 X 10*3/uL (0.00-0.10); Basophils % (A) 0.5 %; Eosinophils # (A) 0.23 X 10*3/uL (0.04-0.35); Eosinophils % (A) 3.5 %; HGB 15.5 g/dL (13.0-17.0); Lymphocytes # (A) 1.87 X 10*3/uL (0.90-5.00); Lymphocytes % (A) 28.9 %; MCH 27.3 pg (27.0-32.0); MCV 82.9 FL (80.0-97.0); Mean Platelet Volume 11.3 FL (9.5-12.2); Monocytes # (A) 0.46 X 10*3/uL (0.20-1.00); Monocytes % (A) 7.1 %; NRBC Per 100 WBC 0 X 10*3/uL (0.00-0.01); Neutrophils # (A) 3.87 X 10*3/uL (1.80-7.70); Neutrophils % (A) 59.7 %; Platelet Count 214 X 10*3/uL (140-440); RBC 5.67 X 10*6/uL (4.40-5.60); RDW 14.1 % (11.5-14.5); WBC 6.48 X 10*3/uL (4.50-10.00)
[2024-09-28 16:30] LABS: Hepatitis A Antibody IgM Nonreactive (Nonreactive); Hepatitis B Core IgM Nonreactive (Nonreactive); Hepatitis B Surface Antigen Nonreactive (Nonreactive); Hepatitis C IgG Antibody Nonreactive (Nonreactive)
[2024-09-28 16:38] LABS: ALT 27 U/L (10-49); AST 25 U/L (14-35); Albumin/Globulin Ratio 1.79 Ratio (1.60-3.17); Alkaline Phosphatase 76 U/L (41-126); Blood Urea Nitrogen 22.5 mg/dL (9.0-27.0); Calcium 10.4 mg/dL (8.7-10.3); Carbon Dioxide 22.8 mmol/L (21.6-31.8); Chloride 104 mmol/L (96-109); Chol/HDL Ratio 6.06 Ratio; Creatine Kinase 602 U/L (35-257); Globulin 2.8 g/dL (1.6-3.3); Glucose 145 mg/dL (70-110); Iron 78 UG/DL (65-175); LDL Cholesterol,Calculated 158.6 mg/dL (0.0-131.0); Phosphorus 3.9 mg/dL (2.4-5.1); Potassium 4.2 mmol/L (3.5-5.5); Sodium 142 mmol/L (135-145); Total Bilirubin 0.3 mg/dL (0.3-1.2); Total Iron Binding Capacity 398 UG/DL (228-460); Total Protein 7.8 g/dL (6.2-8.2)
[2024-09-28 16:55] LABS: Erythrocyte Sedimentation Rate 23 mm/Hr (0-20)
== END | disposition home or self-care (01) ==
LOC: LABWHC1 11:46
PROVIDERS: ATTEND Internal Medicine
DX: E11.65 Type 2 diabetes mellitus with hyperglycemia (principal); R80.9 Proteinuria, unspecified; E78.5 Hyperlipidemia, unspecified
CPT/HCPCS: 36415; 80053; 80061; 80074; 81001; 82043; 82306; 82550; 82570; 83036; 83540; 83550; 83735; 84100; 84156; 84443; 85025; 85652; 86140

== ENCOUNTER → 2024-11-06 | Outpatient (CLI) | payer OTHER ==
[2024-11-06 13:02] LABS: Creatinine,Urine Random 135.4 mg/dL; Protein/Creatinine Ratio,Urine 0.089
[2024-11-06 13:12] LABS: African American GFR (CKD) 75 (>60 ml/min/1.73 sqM); Anion Gap 13 mmol/L; Blood Urea Nitrogen 23 mg/dL (9-20); Calcium 10.3 mg/dL (8.4-10.2); Carbon Dioxide 24 mmol/L (22-30); Chloride 104 mmol/L (98-107); Glucose 92 mg/dL (74-99); Non-African American GFR(CKD) 65 (>60 ml/min/1.73 sqM); Potassium 4.8 mmol/L (3.5-5.1); Sodium 141 mmol/L (137-145)
[2024-11-06 20:38] LABS: Chol/HDL Ratio 8.76 Ratio; LDL Cholesterol,Calculated 235.2 mg/dL (0.0-131.0)
== END | disposition home or self-care (01) ==
LOC: LABWHC1 10:53
PROVIDERS: ATTEND Internal Medicine
DX: I10 Essential (primary) hypertension (principal); I25.10 Atherosclerotic heart disease of native coronary artery without angina pectoris; E87.5 Hyperkalemia; E78.5 Hyperlipidemia, unspecified; E11.65 Type 2 diabetes mellitus with hyperglycemia; E55.9 Vitamin D deficiency, unspecified; R80.9 Proteinuria, unspecified; Z95.1 Presence of aortocoronary bypass graft
CPT/HCPCS: 36415; 80048; 80061; 82043; 82306; 82330; 82570; 83036; 84156

== ENCOUNTER 2025-01-20 17:19 | Emergency (ER) | payer OTHER ==
[2025-01-20 17:37] VITALS: PULSE 88; RESP 18
--- NOTE | 2025-01-20 18:06 | ED ---
ENT HPI - General Chief complaint: ENT Stated complaint: L ear Time Seen by Provider: 01/20/25 18:05 Source: patient, RN notes reviewed Mode of arrival: ambulatory Limitations: no limitations - History of Present Illness Initial comments: 59-year-old male presented to the ER for evaluation of left ear "fogginess". He states for the past 3 to 4 days he has been having muffled hearing out of this ear. He states his ear typically feels this way when he is congested or ill with a URI. Patient denies any injuries, fevers, chills, nausea, vomiting, dizz iness, lightheadedness, chest pain, shortness of breath, abdominal pain or other complaints at this time. He has not taken anything for symptoms. - Related Data Home Medications Medication Instructions Recorded Confirmed Atorvastatin [Lipitor] 40 mg PO HS 08/25/24 08/25/24 Metoprolol Tartrate [Lopressor] 25 mg PO BID 08/25/24 08/25/24 Nicotine 14Mg/24Hr Patch [Habitrol 1 patch TRANSDERM DAILY 08/25/24 08/25/24 14Mg/24Hr Patch] lisinopriL [Zestril] 20 mg PO DAILY 08/25/24 08/25/24 Previous Rx's Medication Instructions Recorded amLODIPine 10 mg PO DAILY #30 tab 08/22/22 Nitroglycerin 0.4 mg SL Q5M PRN #30 tab 11/18/22 Cetirizine HCl [Zyrtec] 10 mg PO DAILY #15 tab 01/20/25 Allergies Allergy/AdvReac Type Severity Reaction Status Date / Time No Known Allergies Allergy Verified 08/25/24 11:59 Review of Systems ROS Statement: Those systems with pertinent positive or pertinent negative responses have been documented in the HPI. ROS Other: All systems not noted in ROS Statement are negative. Past Medical History Past Medical History: Coronary Artery Disease (CAD), Hypertension, Myocardial Infarction ([place]) Last Myocardial Infarction Date:: 2018 History of Any Multi-Drug Resistant Organisms: None Reported Past Surgical History: Coronary Bypass/CABG, Heart Catheterization With Stent Additional Past Surgical History / Comment(s): Quadruple Bypass 2018 Date of Last Stent Placement:: 2019 Past Psychological History: No Psychological Hx Reported Smoking Status: Former smoker, Vaper Past Alcohol Use History: None Reported Past Drug Use History: None Reported General Exam Limitations: no limitations General appearance: alert, in no apparent distress ENT exam: Present: normal exam, mucous membranes moist, TM's normal bilaterally (Minimal fluid behind left TM. TM is nonbulging and nonerythematous. Bilateral TMs intact.), normal external ear exam, other (No mastoid tenderness bilaterally) Neck exam: Present: normal inspection. Absent: tenderness, meningismus, lymphadenopathy Respiratory exam: Present: normal lung sounds bilaterally. Absent: respiratory distress, wheezes, rales, rhonchi, stridor Cardiovascular Exam: Present: regular rate, normal rhythm, normal heart sounds. Absent: systolic murmur, diastolic murmur, rubs, gallop, clicks Neurological exam: Present: alert, oriented X3, CN II-XII intact Skin exam: Present: warm, dry, intact, normal color. Absent: rash Course Vital Signs 01/20/25 01/20/25 17:35 18:16 Temperature 98.2 F 98.1 F Pulse Rate 88 88 Respiratory 18 18 Rate Blood Pressure 149/89 140/86 O2 Sat by Pulse 97 98 Oximetry Medical Decision Making - Medical Decision Making Was pt. sent in by a medical professional or institution (, PA, SUPERVISOR LENS GENERATING, urgent care, hospital, or long term...) When possible be specific @ -No Did you speak to anyone other than the patient for history (EMS, parent, family, police, friend...)? What history was obtained from this source @ -No Did you review nursing and triage notes (agree or disagree)? Why? @ -I reviewed and agree with nursing and triage notes Were old charts reviewed (outside hosp., previous admission, EMS record, old EKG, old radiological studies, urgent care reports/EKG's, long term records)? Report findings @ -No old charts were reviewed Differential Diagnosis (chest pain, altered mental status, abdominal pain women, abdominal pain men, vaginal bleeding, weakness, fever, dyspnea, syncope, headac he, dizziness, GI bleed, back pain, seizure, CVA, palpatations, mental health, musculoskeletal)? @ -Otitis media, otitis externa, foreign body, mastoiditis, viral illness... This list is not meant to be all-inclusive EKG interpreted by me (3pts min.). @ -None done X-rays interpreted by me (1pt min.). @ -None done CT interpreted by me (1pt min.). @ -None done U/S interpreted by me (1pt. min.). @ -None done What testing was considered but not performed or refused? (CT, X-rays, U/S, labs)? Why? @ -None What meds were considered but not given or refused? Why? @ -None Did you discuss the management of the patient with other professionals (professionals i.e. DrKiera, PA, SUPERVISOR LENS GENERATING, lab, RT, psych nurse, social work supervisor, griddle attendant, teacher, canine enforcement officer, porter sample case)? Give summary @ -No Was smoking cessation discussed for >3mins.? @ -No Was critical care preformed (if so, how long)? @ -No Were there social determinants of health that impacted care today? How? (Homelessness, low income, unemployed, alcoholism, drug addiction, transportation, low edu. Level, literacy, decrease access to med. care, mcc, rehab)? @ -No Was there de-escalation of care discussed even if they declined (Discuss DNR or withdrawal of care, Hospice)? DNR status @ -No What co-morbidities impacted this encounter? (DM, HTN, Smoking, COPD, CAD, Cancer, CVA, ARF, Chemo, Hep., AIDS, mental health diagnosis, sleep apnea, morbid obesity)? @ -None Was patient admitted / discharged? Hospital course, mention meds given and route, prescriptions, significant lab abnormalities, going to OR and other pertinent info. @ -Discharge. 59-year-old male presented the ER for evaluation of left ear "fogginess". Vitals within acceptable limits. Exam remarkable for mild fluid behind left TM. Bilateral TMs are nonbulging and nonerythematous. No mastoid tenderness bilaterally. Patient will be started on Zyrtec and advised to follow-up closely with PCP for further evaluation and treatment. Return parameters discussed. Patient discharged stable condition. Patient verbally expressed understanding agree with care plan. Case discussed with ED attending, Dr. Ramirez. Undiagnosed new problem with uncertain prognosis? @ -No Drug Therapy requiring intensive monitoring for toxicity (Heparin, Nitro, Insulin, Cardizem)? @ -No Were any procedures done? @ -No Diagnosis/symptom? @ -Ear pain Acute, or Chronic, or Acute on Chronic? @ -Acute Uncomplicated (without systemic symptoms) or Complicated (systemic symptoms)? @ -Uncomplicated Side effects of treatment? @ -No Exacerbation, Progression, or Severe Exacerbation? @ -No Poses a threat to life or bodily function? How? (Chest pain, [place], [place], pneumonia, PE, COPD, DKA, ARF, appy, cholecystitis, CVA, Diverticulitis, Homicidal, Suicidal, threat to staff... and all critical care pts) @ -No Disposition Clinical Impression: Ear pain Disposition: HOME SELF-CARE Condition: Stable Instructions (If sedation given, give patient instructions): Earache (ED) Additional Instructions: Follow-up with PCP. Return to the ER for any new or worsening concerns. Prescriptions: Cetirizine HCl [Zyrtec] 10 mg PO DAILY #15 tab Is patient prescribed a controlled substance at d/c from ED?: No Referrals: Christina Acosta MD [Primary Care Provider] - 1-2 days Forms: Area PCPs Time of Disposition: 18:07
[2025-01-20 18:17] VITALS: BP 140/86; TEMP 98.1
== END 2025-01-20 18:17 | disposition home or self-care (01) ==
LOC: EC 17:19
DX: H92.02 Otalgia, left ear (principal); F17.290 Nicotine dependence, other tobacco product, uncomplicated
CPT/HCPCS: 99282